=== PATIENT | male | born 1935 | race Caucasian/White ===

== ENCOUNTER 2019-10-31 14:53 | Outpatient (CLI) | payer MEDICARE, SELFPAY ==
[2019-10-31 15:07] LABS: Basophils Absolute Auto 0.01 K/mm3 (0.00-0.10); Basophils Percent Auto 0.2 % (0.0-1.0); Eosinophils Absolute Auto 0.05 K/mm3 (0.02-0.50); Hematocrit 29.5 % (37.0-46.0); Hemoglobin 9.7 g/dL (12.4-15.3); Immature Granulocyte Absolute 0.02 K/mm3 (0.00-0.00); Immature Granulocyte Percent A 0.4 % (0.0-0.0); Immature Platelet Fraction Pct 2.9 % (1.0-7.0); Lymphocytes Absolute Auto 0.64 K/mm3 (1.10-4.50); Lymphocytes Percent Auto 12.9 % (18.0-42.0); Mean Corpuscular HGB Conc 32.9 g/dL (32.0-36.0); Mean Platelet Volume 11.6 fl (8.7-11.0); Monocytes Absolute Auto 0.38 K/mm3 (0.10-0.90); Monocytes Percent Auto 7.7 % (2.0-11.0); Neutrophils Absolute Auto 3.9 K/mm3 (1.7-7.2); Neutrophils Percent Auto 77.8 % (50.0-70.0); Platelet Count Result 41 K/mm3 (150-420); Red Blood Count 3.47 M/mm3 (4.70-6.10); Red Cell Distribution Width 16.6 % (11.6-14.4)
[2019-10-31 15:17] LABS: Creatinine Urine 22.84 mg/dL (40-278); Total Protein Urine Random 51.7 mg/dL (0.0-11.9)
[2019-10-31 15:22] LABS: Hemoglobin A1C 7.7 % (<5.7)
[2019-10-31 16:09] LABS: Albumin Level 3.6 g/dL (3.4-5.0); Anion Gap 20.2 mmol/L (7-16); Blood Urea Nitrogen 40 mg/dL (7-18); Calcium 7.3 mg/dL (8.5-10.1); Carbon Dioxide 19 mmol/L (21-32); Chloride 106 mmol/L (98-108); Estimated Glomerular Filt Rate 14; Glucose 324 mg/dL (70-99); Osmolality Calculated 314 mOsm/kg (285-295); Phosphorus 5.2 mg/dL (2.6-4.7); Potassium 4.2 mmol/L (3.5-5.1); Sodium 141 mmol/L (136-145)
[2019-11-02 14:08] LABS: Parathyroid Intact 498 pg/mL (14-64)
[2019-11-02 18:59] LABS: Vitamin D 25 Hydroxy 11 ng/mL (30-100)
== END 2019-10-31 14:54 | disposition home or self-care (01) ==
LOC: CHSLAB 14:56
PROVIDERS: PCP Nurse Practitioner Family; Visit Provider Internal Medicine Nephrology
DX: N18.4 Chronic kidney disease, stage 4 (severe) (principal); E11.29 Type 2 diabetes mellitus with other diabetic kidney complication; I12.9 Hypertensive chronic kidney disease with stage 1 through stage 4 chronic kidney disease, or unspecified chronic kidney disease; R80.8 Other proteinuria
CPT/HCPCS: 36415; 80069; 82306; 82570; 83036; 83970; 84156; 85025; 85055

== ENCOUNTER 2020-03-02 09:47 | Observation (INO) | payer MEDICARE, SELFPAY ==
[2020-03-02] VITALS (8 sets, daily range): BP systolic 147–175; BP diastolic 63–86; PULSE 55–77; RESP 18–22; TEMP 36–37.2; O2SAT 99–100; BMI 17.9
--- NOTE | ~2020-03-02 | XR_ITS ---
XR thoracic spine 2V DATE: 03/03/2020 09:30 INDICATION: Mid back pain TECHNIQUE: AP, lateral, swimmer views COMPARISON: 03/2018 CT chest abdomen pelvis FINDINGS: There is moderately severe degenerative disease at C4-5, C5-6, C6-7. There is mild loss of height and biconcavity and increased density of T6, raising concern for osteob lastic metastasis secondary to prostate cancer or less likely Paget's disease. There is mild loss of height and anterior wedging of T12, There is mild loss of height and anterior wedging and patchy sclerosis of L1, likely due to metastati c disease. These findings are present on 03/30/2018. No interval fracture or bone destruction is detected. Status post sternotomy and coronary artery bypass surgery. 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
--- NOTE | ~2020-03-02 | XR_ITS ---
XR chest 2V DATE: 03/02/2020 11:53 INDICATION: Chest pain TECHNIQUE: PA and lateral views COMPARISON: 05/23/2019 PA and lateral chest FINDINGS: Status post sternotomy/coronary artery bypass graft surgery. Normal heart size. There is aortic calcification, ectasia and tortuosity. No hilar or mediastinal enl argement is evident. The lungs are hyperinflated. No pulmonary infiltrate or consolidation, pleural e ffusion or pulmonary vascular congestion or pneumothorax is detected. Diffuse osteopenia. IMPRESSION: Bilateral hyperinflation; no active pulmonary disease Status post sternotomy/coronary bypass graft surgery Aortic atherosclerosis Reviewed, dictated and finalized at location A.
--- NOTE | ~2020-03-02 | CT_ITS ---
EXAMINATION: CT cervical spine wo con DATE: 03/03/2020 09:28 INDICATION: Neck pain following fall TECHNIQUE: Computed tomography (CT) of the cervical spine was performed without intravenous contrast. Automated exposure control and iterative reconstruction technique were employed. Exam dose: 167.42 mGy-cm total exam DLP. COMPARISON: 02/11/2019 CT cervical spine FINDINGS: C1 and C2 are normally aligned and the odontoid process is intact. There is severe degenerative disc disease at C4-5 with mild retrolisthesis at this level. There is severe degenerative disc disease at C5-6 with minimal retrolisthesis at this level. There is severe degenerative disease at C6-7. No fracture or dislocation or locked facet or prevertebral soft tissue swelling. Incidental finding of mild thoracic aortic aneurysm. There is extensive thoracic aortic as well as gr eat vessel and bilateral cervical carotid arterial calcifications. IMPRESSION: Extensive degenerative changes; no fracture or dislocation is evident Reviewed, dictated and finalized at [facility]. Reviewed, dictated and finalized at location A. IMPRESSION: Extensive degenerative changes; no fracture or dislocation is evid ent
--- NOTE | ~2020-03-02 | XR_ITS ---
XR lumbar spine 2-3V DATE: 03/03/2020 09:29 INDICATION: Back pain, right hip pain following fall TECHNIQUE: AP, lateral, coned lateral lumbosacral views COMPARISON: None FINDINGS: Diffuse osteopenia. There is a transitional lumbosacral vertebra. There is prominent degenerative disc disease at 2 contiguous lower lumbar interspace levels above the transitional vertebra. With transitional lumbosacral vertebra as S1, there is mild loss of height, anterior wedging and patc hy sclerosis of L1, suggesting possible osseous chronic metastatic disease. Recommend clinical correl ation for possible prostate cancer. There is Paget's disease of the right tristian-pelvis. The pubic symphysis and sacroiliac joints are intact. There is severe calcification of the abdominal aorta and iliac and femoral arteries. 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
--- NOTE | ~2020-03-02 | XR_ITS ---
XR_CERV2-3V_CR DATE: 03/02/2020 15:00 INDICATION: Neck pain following fall TECHNIQUE: AP, lateral, open-mouth views COMPARISON: None FINDINGS: There is a reversal of cervical curvature. There is approximately 1.5 mm anterolisthesis at C3-4. Moderately severe degenerative disc disease and 1.5 mm retrolisthesis at C4-5 Moderately severe degenerative disc disease at C5-6. Moderate degenerative disc disease at C6-7. No fracture or dislocation or locked facet or prevertebral soft tissue swelling is detected. C1 and C 2 are normally aligned and the odontoid process appears intact. Status post sternotomy/CABG. Prominent thoracic aortic arch calcification. Left pleural calcification s are noted. Osteopenia. IMPRESSION: Reversal of cervical curvature 1.5 mm anterolisthesis at C4-5 Moderately severe degenerative disc disease at C4-5 and C5-6, with 1.5 mm retrolisthesis at C4-5 Osteopenia Reviewed, dictated and finalized at [facility]. Reviewed, dictated and finalized at location A. IMPRESSION: Reversal of cervical curvature 1.5 mm anterolisthesis at C4-5 Moderately severe degenerative disc disease at C4-5 and C5-6, with 1.5 mm retro listhesis at C4-5 Osteopenia
--- NOTE | 2020-03-02 10:00 | ECG_ITS ---
Measurements Intervals [place] Rate: 64 P: 74 KS: 173 QRS: 69 QRSD: 101 T: 67 QT: 438 QTc: 454 Interpretive Statements SINUS RHYTHM INFERIOR INFARCT, AGE INDETERMINATE BASELINE ARTIFACT- I, III, AVL, AVF ABNORMAL ECG Electronically Signed On 03-02-2020 20:12:37 CDT by Gio Valle D.O.
[2020-03-02 11:00] LABS: Basophils Absolute Auto 0.01 K/mm3 (0.00-0.10); Basophils Percent Auto 0.2 % (0.0-1.0); Eosinophils Absolute Auto 0.01 K/mm3 (0.02-0.50); Eosinophils Percent Auto 0.2 % (1.0-6.0); Hematocrit 27.8 % (37.0-46.0); Hemoglobin 9.2 g/dL (12.4-15.3); Immature Granulocyte Absolute 0.02 K/mm3 (0.00-0.00); Immature Granulocyte Percent A 0.3 % (0.0-0.0); Immature Platelet Fraction Pct 2.3 % (1.0-7.0); Lymphocytes Absolute Auto 0.32 K/mm3 (1.10-4.50); Lymphocytes Percent Auto 5.6 % (18.0-42.0); Mean Corpuscular HGB Conc 33.1 g/dL (32.0-36.0); Mean Corpuscular Hemoglobin 28.5 pg (27.0-31.0); Mean Corpuscular Volume 86.1 fL (78.0-102.0); Mean Platelet Volume 11.6 fl (8.7-11.0); Monocytes Absolute Auto 0.57 K/mm3 (0.10-0.90); Monocytes Percent Auto 9.9 % (2.0-11.0); Neutrophils Absolute Auto 4.8 K/mm3 (1.7-7.2); Neutrophils Percent Auto 83.8 % (50.0-70.0); Platelet Count Result 35 K/mm3 (150-420); Red Blood Count 3.23 M/mm3 (4.70-6.10); Red Cell Distribution Width 15.4 % (11.6-14.4); White Blood Count 5.7 K/mm3 (4.8-10.8)
[2020-03-02 11:11] LABS: Alanine Aminotransferase 28 U/L (16-63); Albumin Level 2.7 g/dL (3.4-5.0); Alkaline Phosphatase 605 U/L (46-116); Anion Gap 15.6 mmol/L (7-16); Aspartate Amino Transferase 25 U/L (15-37); Bilirubin,Total 0.5 mg/dL (0.00-1.00); Blood Urea Nitrogen 41 mg/dL (7-18); Carbon Dioxide 19 mmol/L (21-32); Chloride 107 mmol/L (98-108); Estimated CRCL calculation 8 ml/min; Estimated Glomerular Filt Rate 13; Glucose 133 mg/dL (70-99); Lipase 10 U/L (73-393); Osmolality Calculated 296 mOsm/kg (285-295); Potassium 4.6 mmol/L (3.5-5.1); Sodium 137 mmol/L (136-145); Total Protein 6.7 g/dL (6.4-8.2)
[2020-03-02 11:12] LABS: BNP 567 pg/mL (0-100)
[2020-03-02 11:13] LABS: Troponin I < 0.02 ng/mL (0.00-0.056)
--- NOTE | 2020-03-02 11:18 | ED.CHESTPAIN ---
HPI - Chest Pain General Chief Complaint: Chest Pain Stated Complaint: CHEST PAIN Source: patient Mode of arrival: ambulatory Limitations: no limitations History of Present Illness HPI narrative: this is an 84-year-old gentleman that presents from home to the emergency department with complaints of chest pain has had this chest pain for approximately 2 to 3 months has a history of CAD with CABG over 10 years ago, currently the patient denies any shortness of breath there is no fever or chills no abdominal pain no nausea vomiting no diarrhea constipation. The patient takes nitroglycerin had taken 1 earlier today currently his pain is relieved, an currently out of his nitroglycerin. Patient has a history of chronic renal insufficiency and history of pancreatic cancer. His blood pressure initially was 175/ 67, current blood pressure 150/80 patient appears comfortable with currently no chest discomfort. Related Data Home Medications Medication Instructions Recorded Confirmed amlodipine 5 mg tablet 5 mg PO BID 08/29/19 03/02/20 doxycycline monohydrate 100 mg 100 mg PO DAILY 08/29/19 03/02/20 capsule isosorbide mononitrate 30 mg 30 mg PO DAILY 08/29/19 03/02/20 tablet,extended release 24 hr tamsulosin 0.4 mg capsule 0.4 mg PO DAILY 08/29/19 11/21/19 clonidine 0.2 mg/24 hr weekly See Rx Instructions .ROUTE 11/08/19 03/02/20 transdermal patch .COMPLEX each nitroglycerin 0.4 mg sublingual 0.4 mg SUBLINGUAL ONCE tablet 11/08/19 03/02/20 tablet Allergies Allergy/AdvReac Type Severity Reaction Status Date / Time chlorthalidone Allergy Intermediate Unknown Verified 11/08/19 14:41 spironolactone Allergy Intermediate Unknown Verified 11/08/19 14:41 Daadquo-Oaj-Htb Reductase Allergy Cramping Verified 11/08/19 14:41 Inhibitor of the Muscles Review of Systems Review of Systems: All systems reviewed & are unremarkable except as noted in HPI and below PMFSH Past Medical History Medical History CAD (coronary artery disease) Cancer of pancreas Chronic liver disease Chronic renal insufficiency, stage IV (severe) Hip pain Hyperlipidemia associated with type 2 diabetes mellitus Hypertension associated with diabetes Nicotine dependence Pancytopenia Type 2 diabetes mellitus Surgical History Surgical History Acquired absence of other specified parts of digestive tract Whipple Procedure History of cataract surgery History of cholecystectomy History of pancreatectomy S/P CABG x 2 Family History Family History Mother Acute myocardial infarction Father Family history of coronary artery disease Other Hypertension Social History Social History Smoking status: Former smoker Substance use: never Additional occupation/education comments: [employer] Gender identity (if verbalized by the patient): Male Spiritual care concerns: No Exam Const: General: no acute distress and alert Orientation/consciousness: patient oriented x3 HENMT: Head: normal to inspection Eyes: Conjunctivae: conjunctivae normal Pupils: Equal, round and reactive pupils present Neck: Neck: normal visual inspection and no lymphadenopathy Chest: Chest palpation & inspection: normal inspection of the chest Resp: Effort & Inspection: normal respiratory effort Auscultation: clear to auscultation bilaterally Cardio: Rate: regular rate Rhythm: regular rhythm GI: Auscultation: normal bowel sounds : Male General Exam: Yes normal external exam Urinary Catheter: Urinary Catheter: patent and draining Back/Spine/Pelvis: Back: no CVA tenderness Skin: General skin exam: normal color Rashes: no rashes Neuro: General: patient oriented x3, moves all extremities, no meningeal signs and no focal motor def
--- NOTE | 2020-03-02 12:16 | PC.NURSE ---
Admitted for observation for chest pain, states pain relieved with oxygen adminsitration while in the ED, states out of nitroglycerine at home which he usually takes at home, states has been falling frequently at home, last time day before yesterday and now has been having more frequent chest pain and thinks this could be source of his pain, no ambulatory aids used at home, currently pain free, no sob noted, no diaphoresis noted, color pale, skin warm and dry, oriented to room and hospital procedures
[2020-03-02 12:36] LABS: Magnesium 1.7 mg/dL (1.8-2.4)
--- NOTE | 2020-03-02 12:40 | PC.NURSE ---
Sitting up in bed eating lunch, no chest pain, feeds self, no distress, states feels better with oxygen on
[2020-03-02] MEDS: SODIUM CHLORIDE 0.45% 1,000 ML 100 ML IV CONT ×2 (13:09→22:37)
--- NOTE | 2020-03-02 13:50 | PC.NURSE ---
Roseanna for reading brought in for patient, denies chest pain, no distress, call light in reach of patient
[2020-03-02] MEDS: MAGNESIUM SULF 2 GM/WATER 50ML 2 GM/50 ML BAG IVPB (14:00)
[2020-03-02] MEDS: LORATADINE 10 MG TABLET PO (14:00)
--- NOTE | 2020-03-02 14:00 | PM.IMHP ---
H&P: HPI History of Present Illness Chief complaint: CHEST PAIN Narrative: Papa Kennedy is a 84 year old male that presented to the ED with complaints of chest pain and wanted a refill on his nitro pills. Patient has a past medical history of CAD, cancer of the pancreatitis, chronic liver disease, stage IV chronic renal disease, hip pain, hyperlipidemia associated with type 2 diabetes, hypertension, pancytopenia, CABG,and CVA. according to the patient last week approximately Wednesday patient was putting up a flag pole in his yard and fell backwards he denies hitting his head or having any trauma he caught himself with his hand. He does complain of neck pain at this time. He noted that ever since he had that fall he has been having chest pains with numbness in his bilateral upper extremities and taking his nitroglycerin on a daily basis. He noted that he originally thought it was acid reflux he also noted that when he took the nitro his condition improved. He also have complaints of being fatigued. He noted he was so fatigued that he had to cut off his clothing. While in the ED a EKG was completed which is pending his chest x-ray indicated Bilateral hyperinflation; his troponin were negative x1 BNP 567. Patient will be admitted and placed on telemetry echo ordered and pending, we will hydrate patient due to worsening creatinine. patient is also currently on oxygen according to patient it improves his chest pain. He does deny any shortness of breath at this time. Patient denies any shortness of breath, palpitations, lightheadedness, dizziness, constipation, diarrhea, chills or fever at this time. patient will remain on observation for 24 hours. 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 on discharge Review of Systems Constitutional: Constitutional: Reports fatigue, Denies fever(s), Reports frequent falls, Denies headache(s) and Reports lethargy Cardiovascular: Cardiovascular: Reports chest pain and Reports other ( bilateral upper extremity numbness) Respiratory: Respiratory: Denies chest congestion, Denies cough, Denies pain with cough, Denies dyspnea and Denies wheezing Gastrointestinal: Gastrointestinal: Denies abdominal pain, Denies dysphagia, Denies excessive flatus, Reports heartburn, Denies diarrhea, Denies loose stools, Denies nausea, Denies vomiting and Denies hematemesis Genitourinary: Genitourinary: Reports as per HPI and Denies dysuria Musculoskeletal: Musculoskeletal: Reports neck pain ( post fall) and Reports numbness ( bilateral upper extremities) Integumentary/Breasts: Skin/Breast: Reports system reviewed and no additional complaints, except as docu Neurologic: Denies confusion, Denies vertigo, Denies dizziness, Denies syncope, Reports frequent falls, Reports lack of coordination and Denies loss of vision Psychiatric: Psychiatric: Reports no additional psychiatric complaints, Denies confusion, Denies depression and Denies hopelessness Endocrine: Endocrine: Reports no additional endocrine complaints Hematologic/Lymphatic: Hematologic/Lymphatic: Reports no additional hematologic/lymphatic complaints Allergic/Immunologic: Allergic/Immunologic: Reports no additional allergic/immunologic complaints PMFSH Past Medical History Medical History CAD (coronary artery disease) Cancer of pancreas Chronic liver disease Chronic renal insufficiency, stage IV (severe) Hip pain Hyperlipidemia associated with type 2 diabetes mellitus Hypertension associated with diabetes Nicotine dependence Pancytopenia Type 2 diabetes mellitus Surgical History Surgical History Acquired absence of other specified parts of digestive tract Whipple Procedure History of cataract surgery History of cholecystectomy History of pancreatectomy S/P CABG x 2
[2020-03-02 14:06] LABS: Troponin I 0.03 ng/mL (0.00-0.056)
--- NOTE | 2020-03-02 15:56 | PC.NURSE ---
Noted to have heart rate as low as 49 when asleep, no distress noted, call light in reach of patient
[2020-03-02 16:42] LABS: Glucose Point of Care 374 (65-105)
[2020-03-02] MEDS: AMLODIPINE BESYLATE 5 MG TABLET PO (16:58)
[2020-03-02 17:16] LABS: Troponin I 0.04 ng/mL (0.00-0.056)
[2020-03-02] MEDS: ACETAMINOPHEN 325 MG TABLET 650 MG PO (18:24)
[2020-03-02] MEDS: PANTOPRAZOLE 40 MG TABLET PO (20:21)
--- NOTE | 2020-03-02 20:22 | PC.NURSE ---
Patient denying pain at this time. He does report a strange feeling in his left knee down to his foot since he fell at home, He states that it is not pain but that it feels peculiar .
[2020-03-02 21:01] LABS: Add Urine Microscopic? YES; Appearance Urine Clear (Clear); Bilirubin Urine Negative (Negative); Blood Urine 1+ (Negative); Color Urine Yellow (Yellow); Glucose Urine UA Trace (Negative); Ketones Urine Negative (Negative); Leukocyte Esterase Ur Negative LEU/UL (Negative); Nitrate Urine Negative (Negative); Protein Urine 1+ (Negative); Urobilinogen Urine 0.2 mg/dL (0.2-1.0)
[2020-03-02 21:06] LABS: RBC Urine 0-2 /hpf (0-2); WBC Urine None seen /hpf (0-3)
[2020-03-02 21:07] LABS: Bacteria Urine None seen /hpf; Mucus Urine None seen /lpf; Squamous Epithelial Cell Urine None seen /hpf (Few)
[2020-03-02 22:46] LABS: Glucose Point of Care 130 (65-105)
[2020-03-03] VITALS: BP 149/60; PULSE 50; PULSE 51; RESP 20; TEMP 36.1; O2SAT 99
[2020-03-03 04:00] VITALS: BP 145/57; PULSE 46; RESP 20; TEMP 36.1; O2SAT 98
[2020-03-03 04:12] VITALS: PULSE 43
[2020-03-03 05:50] LABS: Hematocrit 25.9 % (37.0-46.0); Hemoglobin 8.5 g/dL (12.4-15.3); Immature Platelet Fraction Pct 2.6 % (1.0-7.0); Mean Corpuscular HGB Conc 32.8 g/dL (32.0-36.0); Mean Corpuscular Hemoglobin 28.2 pg (27.0-31.0); Mean Platelet Volume 12.2 fl (8.7-11.0); Platelet Count Result 32 K/mm3 (150-420); Red Blood Count 3.01 M/mm3 (4.70-6.10); Red Cell Distribution Width 15.4 % (11.6-14.4); White Blood Count 3.3 K/mm3 (4.8-10.8)
[2020-03-03 06:04] LABS: Lactic Acid 0.4 mmol/L (0.4-2.0)
[2020-03-03 06:06] LABS: BNP 1170 pg/mL (0-100)
[2020-03-03 06:14] LABS: Phosphorus 5.1 mg/dL (2.6-4.7)
[2020-03-03 06:15] LABS: Alanine Aminotransferase 27 U/L (16-63); Albumin Level 2.2 g/dL (3.4-5.0); Alkaline Phosphatase 502 U/L (46-116); Anion Gap 14.5 mmol/L (7-16); Aspartate Amino Transferase 22 U/L (15-37); Bilirubin,Total 0.3 mg/dL (0.00-1.00); Blood Urea Nitrogen 42 mg/dL (7-18); Carbon Dioxide 20 mmol/L (21-32); Chloride 108 mmol/L (98-108); Estimated CRCL calculation 9 ml/min; Estimated Glomerular Filt Rate 14; Glucose 96 mg/dL (70-99); Osmolality Calculated 296 mOsm/kg (285-295); Potassium 4.5 mmol/L (3.5-5.1); Sodium 138 mmol/L (136-145); Total Protein 5.3 g/dL (6.4-8.2)
--- NOTE | 2020-03-03 06:30 | PC.NURSE ---
Lab called to report critical creatinine level of 4.12.
[2020-03-03 06:34] VITALS: O2SAT 100
--- NOTE | 2020-03-03 06:44 | PC.NURSE ---
Dr. Hicks notified of pt's critical creatinine value and elevated BNP. Orders received and noted.
[2020-03-03 07:02] LABS: Band Neutrophils Percent 0 % (0-6); Lymphocytes Absolute Manual 0.89 K/mm3 (1.1-4.5); Lymphocytes Percent Manual 27 % (18-44); Monocytes Absolute Manual 0.29 K/mm3 (0.1-0.90); Monocytes Percent Manual 9 % (3-9); Neutrophils Absolute Manual 1.98 K/mm3 (1.3-6.7); Neutrophils Percent Manual 60 % (46-73); Total Cells Counted 100
[2020-03-03 07:03] LABS: Eosinophils Absolute Manual 0.13 K/mm3 (0.02-0.5); Eosinophils Percent Manual 4 % (1-6); Platelet Estimate Decreased (Adequate)
[2020-03-03] MEDS: FUROSEMIDE INJ 40 MG/4 ML VIAL IV PUSH (07:24)
[2020-03-03 07:42] VITALS: BP 130/55; PULSE 59; RESP 18; TEMP 36.3; O2SAT 95
[2020-03-03 07:56] LABS: Magnesium 2.2 mg/dL (1.8-2.4)
[2020-03-03 08:05] LABS: Troponin I 0.05 ng/mL (0.00-0.056)
[2020-03-03] MEDS: PANTOPRAZOLE 40 MG TABLET PO (09:25)
[2020-03-03] MEDS: AMLODIPINE BESYLATE 5 MG TABLET PO (09:25)
[2020-03-03] MEDS: LORATADINE 10 MG TABLET 5 MG PO (09:26)
--- NOTE | 2020-03-03 09:32 | PC.NURSE ---
Up in [place] walking, no chest pain, some pain in leg but thinks this is due from fall, just feeling tired
--- NOTE | 2020-03-03 10:21 | PM.IMPN ---
Subjective Date/time seen: 03/03/20 10:21 Objective Data Vital Signs Vital Signs: Vital Signs - 24 hr 03/02/20 10:25 03/02/20 10:41 03/02/20 11:49 Temperature 98 F Pulse Rate 77 62 62 Respiratory Rate 22 H 20 18 Blood Pressure 175/67 H 150/80 H 166/86 H Pulse Oximetry 100 100 100 03/02/20 12:05 03/02/20 12:15 03/02/20 15:15 Temperature 99 F Pulse Rate 67 67 58 L Respiratory Rate 18 18 Blood Pressure 152/74 H Pulse Oximetry 99 99 03/02/20 15:16 03/02/20 20:00 03/03/20 00:00 Temperature 97.7 F 96.8 F L 96.9 F L Pulse Rate 60 64 50 L Respiratory Rate 18 18 20 Blood Pressure 167/63 H 147/69 H 149/60 H Pulse Oximetry 99 99 99 03/03/20 04:00 03/03/20 04:12 03/03/20 06:34 Temperature 97.0 F L Pulse Rate 46 L 43 L Respiratory Rate 20 Blood Pressure 145/57 H Pulse Oximetry 98 100 03/03/20 07:42 Temperature 97.4 F L Pulse Rate 59 L Respiratory Rate 18 Blood Pressure 130/55 L Pulse Oximetry 95 Intake/Output Intake/Output: Intake & Output 02/29/20 03/01/20 03/02/20 03/03/20 23:59 23:59 23:59 23:59 Intake Total 6556.022 9965 Output Total 325 1200 Balance 1371.667 330 Meds/Results Medications: Active Medications Generic Name Dose Route Start Last Admin Trade Name Freq PRN Reason Stop Dose Admin Acetaminophen 650 mg 03/02/20 11:30 03/02/20 18:24 Tylenol Tablet PO 650 mg Q4H PRN Administration Mild Pain (1-3) or Fever Hydrocodone Bitart/Acetaminophen 1 tab 03/02/20 11:37 Richards 5-325 Mg PO Q6H PRN pain Al Hydrox/Mg Hydrox/Simethicone 30 ml 03/02/20 11:30 Mylanta PO QID PRN Dyspepsia Amlodipine Besylate 5 mg 03/02/20 17:00 03/03/20 09:25 Norvasc PO 5 mg BID SAMMY Administration Calcium Carbonate 200 mg 03/02/20 13:39 Tums PO Q6H PRN Indigestion Clonidine HCl 1 patch 03/06/20 09:00 Clonidine 0.2 Mg/24 Hr TRANSDERM WEEKLY [facility] Dextrose 12.5 gm 03/02/20 14:01 Dextrose 50% Syringe IV PUSH PRN PRN Hypoglycemia Protocol Diphenhydramine HCl 25 mg 03/02/20 13:34 03/02/20 22:37 Benadryl Cap PO 25 mg HS PRN Administration Insomnia Ergocalciferol 50,000 unit 03/05/20 09:00 Drisdol PO WEEKLY SAMMY Glucagon 1 mg 03/02/20 14:01 Glucagon For Inj IM PRN PRN Hypoglycemia Protocol Glucose 15 gm 03/02/20 14:01 Glutose 15 PO PRN PRN Hypoglycemia Protocol Dextrose 1,000 mls @ 100 mls/hr 03/02/20 14:01 Dextrose 5% 1,000 Ml IVPB PRN PRN Hypoglycemia Protocol Insulin Human Lispro 2 - 5 units 03/02/20 17:00 03/03/20 07:28 Humalog SUB-Q Not Given TIDWM [facility] Protocol Isosorbide Mononitrate 30 mg 03/03/20 12:00 Imdur PO DAILY SAMMY Loratadine 5 mg 03/03/20 09:00 03/03/20 09:26 Claritin PO 5 mg QAM [facility] Administration Nitroglycerin 0.4 mg 03/02/20 11:40 Nitrostat Subl 0.4 Mg (1/150) SUBLINGUAL ONCE PRN Chest Pain Olopatadine HCl 1 drop 03/02/20 17:00 03/03/20 09:27 Patanol 0.1% Ophth Soln EACH EYE Not Given BID [facility] Ondansetron HCl 4 mg 03/02/20 11:30 Zofran Inj IV PUSH Q6H PRN Nausea And Vomiting Pantoprazole Sodium 40 mg 03/02/20 21:00 03/03/20 09:25 Protonix PO 40 mg Q12HR SAMMY Administration Radiology Results: ITS Impressions Chest X-Ray 03/02/20 12:38 IMPRESSION: Bilateral hyperinflation; no active pulmonary disease Status post sternotomy/coronary bypass graft surgery Aortic atherosclerosis Cervical Spine X-Ray 03/02/20 15:05 IMPRESSION: Reversal of cervical curvature 1.5 mm anterolisthesis at C4-5 Moderately severe degenerative disc disease at C4-5 and C5-6, with 1.5 mm retrolisthesis at C4-5 Osteopenia Thoracic Spine X-Ray 03/03/20 09:36 IMPRESSION: 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
[2020-03-03 11:21] LABS: Glucose Point of Care 272 (65-105)
[2020-03-03 11:24] LABS: Prostate Specific Antigen 0.8 ng/mL (< OR = 4.0)
--- NOTE | 2020-03-03 11:44 | PM.DS ---
DS: Admitting Diagnosis Admitting Diagnosis Admitting Diagnosis: Chest pain, unspecified DS: Discharge Diagnosis Discharge Diagnosis (1) Chest pain: Qualifiers: Chest pain type: unspecified Qualified Code(s): R07.9 - Chest pain, unspecified Code(s): R07.9 - Chest pain, unspecified Status: Acute Assessment and Plan: troponin within normal limits x5. F/U with Dr. Hodge continue nitro EKG sr patient will follow-up with hearing instrument specialist on discharge (2) Acute renal failure: Qualifiers: Acute renal failure type: unspecified Qualified Code(s): N17.9 - Acute kidney failure, unspecified Code(s): N17.9 - Acute kidney failure, unspecified Status: Acute Assessment and Plan: chronic stage IV renal function with slight improvement. Patient is a dialysis candidate but refuse treatment creatinine today 4.12 baselines appears to be at 2.80-3.0 (3) Pancytopenia: Code(s): D61.818 - Other pancytopenia Status: Acute Assessment and Plan: chronic possibly secondary to chronic renal disease on 08/01/2019 platelets were 10/20/2043 20 platelets were 41 patient not actively bleeding (4) Vitamin D deficiency: Code(s): E55.9 - Vitamin D deficiency, unspecified Status: Acute Assessment and Plan: continue supplements (5) Cancer of pancreas: Code(s): C25.9 - Malignant neoplasm of pancreas, unspecified Status: Acute Assessment and Plan: patient currently in remission whipples procedure completed approximately 20 years ago (6) Irritation of left eye: Code(s): H57.89 - Other specified disorders of eye and adnexa Status: Acute Assessment and Plan: continue eyedrops (7) Type 2 diabetes mellitus: Code(s): E11.9 - Type 2 diabetes mellitus without complications Status: Acute Assessment and Plan: blood sugar 116, controlled (8) Chronic liver disease: Code(s): K76.9 - Liver disease, unspecified Status: Acute Assessment and Plan: stable liver enzymes within normal limits will continue to monitor (9) Chronic renal insufficiency, stage IV (severe): Code(s): N18.4 - Chronic kidney disease, stage 4 (severe) Status: Acute Assessment and Plan: according to patient he was going to start peritoneal dialysis but due to the scar tissue from his Whipple procedure he was unable to peritoneal dialysis. he then was supposed to have a fistula placed in his doctor was called for duty. patient after decided not to get any treatment for his chronic renal insufficiency. creatinine currently 4.19 baseline appears to be between 2.0 in 3.. will complete the fluid challenge (10) Hypertension: Code(s): I10 - Essential (primary) hypertension Status: Acute Assessment and Plan: blood pressure stable . continueisosorbide mononitrate and clonidine weekly (11) GERD (gastroesophageal reflux disease): Code(s): K21.9 - Gastro-esophageal reflux disease without esophagitis Status: Acute Assessment and Plan: continue home medication DS: Summary Hospital Course Hospital Course: Patient H&P from 03/02/20 Chief complaint: CHEST PAIN Narrative: Papa Kennedy is a 84 year old male that presented to the ED with complaints of chest pain and wanted a refill on his nitro pills. Patient has a past medical history of CAD, cancer of the pancreatitis, chronic liver disease, stage IV chronic renal disease, hip pain, hyperlipidemia associated with type 2 diabetes, hypertension, pancytopenia, CABG,and CVA. according to the patient last week approximately Wednesday patient was putting up a flag pole in his yard and fell backwards he denies hitting his head or having any trauma he caught himself with his hand. He does complain of neck pain at this time. He noted that ever since he had that fall he has be
--- NOTE | 2020-03-03 11:44 | P.DS_ITS ---
DS: Admitting Diagnosis Admitting Diagnosis Admitting Diagnosis: Chest pain, unspecified DS: Discharge Diagnosis Discharge Diagnosis (1) Chest pain: Qualifiers: Chest pain type: unspecified Qualified Code(s): R07.9 - Chest pain, unspecified Code(s): R07.9 - Chest pain, unspecified Status: Acute Assessment and Plan: * troponin within normal limits x5. F/U with Dr. Hodge * continue nitro * EKG sr * patient will follow-up with scleroscope tester on discharge (2) Acute renal failure: Qualifiers: Acute renal failure type: unspecified Qualified Code(s): N17.9 - Acute kidney failure, unspecified Code(s): N17.9 - Acute kidney failure, unspecified Status: Acute Assessment and Plan: * chronic stage IV * renal function with slight improvement. Patient is a dialysis candidate but refuse treatment * creatinine today 4.12 baselines appears to be at 2.80-3.0 * (3) Pancytopenia: Code(s): D61.818 - Other pancytopenia Status: Acute Assessment and Plan: * chronic possibly secondary to chronic renal disease * on 08/01/2019 platelets were 10/20/2043 20 platelets were 41 * patient not actively bleeding (4) Vitamin D deficiency: Code(s): E55.9 - Vitamin D deficiency, unspecified Status: Acute Assessment and Plan: * continue supplements (5) Cancer of pancreas: Code(s): C25.9 - Malignant neoplasm of pancreas, unspecified Status: Acute Assessment and Plan: * patient currently in remission whipples procedure completed approximately 20 years ago (6) Irritation of left eye: Code(s): H57.89 - Other specified disorders of eye and adnexa Status: Acute Assessment and Plan: * continue eyedrops (7) Type 2 diabetes mellitus: Code(s): E11.9 - Type 2 diabetes mellitus without complications Status: Acute Assessment and Plan: * blood sugar 116, controlled (8) Chronic liver disease: Code(s): K76.9 - Liver disease, unspecified Status: Acute Assessment and Plan: * stable * liver enzymes within normal limits * will continue to monitor (9) Chronic renal insufficiency, stage IV (severe): Code(s): N18.4 - Chronic kidney disease, stage 4 (severe) Status: Acute Assessment and Plan: * according to patient he was going to start peritoneal dialysis but due to the scar tissue from his Whipple procedure he was unable to peritoneal dialysis. he then was supposed to have a fistula placed in his doctor was called for duty. patient after decided not to get any treatment for his chronic renal insufficiency. * creatinine currently 4.19 baseline appears to be between 2.0 in 3.. will complete the fluid challenge (10) Hypertension: Code(s): I10 - Essential (primary) hypertension Status: Acute Assessment and Plan: * blood pressure stable * . continueisosorbide mononitrate and clonidine weekly * (11) GERD (gastroesophageal reflux disease): Code(s): K21.9 - Gastro-esophageal reflux disease without esophagitis Status: Acute Assessment and Plan: * continue home medication DS: Summary Hospital Course Hospital Course: Patient H&P from 03/02/20 Chief complaint: CHEST PAIN Narrative: Papa Kennedy is a 84 year old male that presented to the ED with complaints of chest pain and wanted a refill on his nitro pills. Patient has a past medical history of CAD, cancer of the pancre
[2020-03-03 12:00] VITALS: BP 165/71; PULSE 54; PULSE 55; RESP 18; TEMP 36.3; O2SAT 95
--- NOTE | 2020-03-03 13:10 | PC.NURSE ---
Discharged via wheel chair to home with discharge instructions, no questions voiced, picked patient up to take him home, no questions voiced per
[2020-03-03 13:13] LABS: Troponin I 0.05 ng/mL (0.00-0.056)
--- NOTE | 2020-03-03 19:52 | PM.EVENT ---
Event Note Event Note Event Note: Patient states that his chest pain is all but resolved. He complains of pain in his left upper back. It is worse with movement. Alert and oriented. Mucous membranes moist. Regular rate and rhythm. III/ TORI over the precordium. extremities warm dry and pink and distal pulses are full and symmetric. Scant edema. CT the C-spine and x-rays of T-spine were ordered to further evaluate the back pain given his recent fall. 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 Troponin remains stable and normal. home today. I have reviewed the chart and examined the patient. I discussed the case with Jeffery Patrick APN and agree with her assessment plan.
[2020-03-06 20:31] LABS: Carcinoembryonic Antigen 4.1 ng/mL (0.0-2.4)
== END 2020-03-03 13:10 | disposition home or self-care (01) ==
LOC: CHSED 11:29 → CHS2ND 11:47
PROVIDERS: Nurse Practitioner; Admitting Provider Emergency Medicine; Emergency Provider Emergency Medicine; PCP Nurse Practitioner Family; Visit Provider Emergency Medicine
DX: R07.9 Chest pain, unspecified (principal); N17.9 Acute kidney failure, unspecified; N18.4 Chronic kidney disease, stage 4 (severe); R93.7 Abnormal findings on diagnostic imaging of other parts of musculoskeletal system; E11.9 Type 2 diabetes mellitus without complications; I25.10 Atherosclerotic heart disease of native coronary artery without angina pectoris; E78.5 Hyperlipidemia, unspecified; K76.9 Liver disease, unspecified; D61.818 Other pancytopenia; I10 Essential (primary) hypertension; R53.83 Other fatigue; M54.2 Cervicalgia; E55.9 Vitamin D deficiency, unspecified; H57.89 Other specified disorders of eye and adnexa; K21.9 Gastro-esophageal reflux disease without esophagitis; M50.321 Other cervical disc degeneration at C4-C5 level; M50.322 Other cervical disc degeneration at C5-C6 level; Z85.07 Personal history of malignant neoplasm of pancreas; Z87.891 Personal history of nicotine dependence; Z95.1 Presence of aortocoronary bypass graft; Z91.81 History of falling
CPT/HCPCS: 36415; 71046; 72040; 72070; 72100; 72125; 80053; 81001; 82378; 83605; 83690; 83735; 83880; 84100; 84153; 84484; 85025; 85055; 87086; 87088; 93005; 96361; 96365; 96375; 99285; A9270; G0378; J1815; J1940; J3475

== ENCOUNTER 2020-03-06 10:00 | Outpatient (CLI) | payer MEDICARE, SELFPAY ==
--- NOTE | 2020-03-06 10:10 | ECHO_ITS ---
Patient Info Name: Papa Kennedy Age: 84 years : 1935 Gender: Male Ht: 65 in Wt: 112 lbs BSA: 1.52 m2 HR: 59 bpm BP: 170 / 63 mmHg Heart Rhythm: Sinus Rhythm Technical Quality: Good Exam Date: 03/06/2020 10:18 AM Exam Location: [facility] Patient Status: Outpatient Admit Date: 03/06/2020 Staff Ordering Physician: Kristina Patrick Timber Packer: Mariluz Chanel RDCS Attending Provider: Kristina Patrick Referring Physician: Darnell HOLLEY; Exam Type: CA echo doppler color flow Study Info Indications I11.9 - Hypertensive heart disease without heart failure Complete two-dimensional, color flow and Doppler transthoracic echocardiogram is performed. Strain analysis performed. History/Risk Factors Hypertension: Yes Dyslipidemia: Yes Congenital Heart Disease (CHD): No Myocardial Infarction (ND): No Chronic Lung Disease: No Obesity: No Renal Disease: Yes Coronary Artery Disease (CAD) Yes Congestive Heart Failure (CHF): No Cardiomyopathy/LV Systolic Dysfunction: No Diabetes Mellitus: Yes COPD: No Tobacco Use: Former Cerebrovascular Disease: CVA Family History: Coronary Artery Disease Deep Vein Thrombosis (DVT): None Dialysis: None Frailty Scale (CSHA): 3: Managing Well Cardiac Arrest: No Prior Interventions Pacemaker: No CABG: Yes ICD: No Heart Transplant: No Summary 1. Patient has prior CABG. 2. Left ventricular chamber dimension is normal. 3. Left ventricular systolic function is normal, estimated at 55-60%. 4. There is mildly increased left ventricular wall thickness. 5. The left ventricular diastolic function is grade I diastolic dysfunction. 6. E/e' in tissue doppler is not calculated. 7. Global longitudinal strain is normal at -18.0%. 8. Left atrial chamber dimension is mildly enlarged. 9. Right atrial chamber dimension is mildly enlarged. 10. Interatrial septal bounce is noted. 11. There is moderate aortic valve sclerosis. 12. There is trace aortic valve regurgitation. 13. There is mild aortic valve stenosis based on a mean gradient of 12 mmHg. 14. The mitral valve has mildly calcified annulus. 15. There is trace mitral valve regurgitation. 16. There is mild tricuspid valve regurgitation. 17. No pulmonary hypertension, estimated pulmonary arterial systolic pressure is 28 mmHg. 18. Small atheroma in anterior and posterior aortic root. Recommendations * Continue medical therapy for diabetes. Left Ventricle E/e' in tissue doppler is not calculated. Global longitudinal strain is normal at -18.0%. Left ventricular chamber dimension is normal. Left ventricular systolic function is normal, estimated at 55-60%. There is mildly increased left ventricular wall thickness. The left ventricular diastolic function is grade I diastolic dysfunction. Right Ventricle Right ventricular chamber dimension is normal. Right ventricular systolic function is normal. Left Atria Left atrial chamber dimension is mildly enlarged. Right Atria Right atrial chamber dimension is mildly enlarged. Atrial Septum Interatrial septal bounce is noted. Intact interatrial septum visualized by 2D and color flow imaging. Aortic Valve There is mild aortic valve stenosis based on a mean gradient of 12 mmHg. The aortic valve is trileaflet. There is moderate aortic valve sclerosis. There is trace aortic valve regurgitation. Pulmonic V
[2020-03-06 11:01] LABS: Albumin Level 2.9 g/dL (3.4-5.0); Anion Gap 18.2 mmol/L (7-16); Blood Urea Nitrogen 31 mg/dL (7-18); Calcium 7.3 mg/dL (8.5-10.1); Carbon Dioxide 20 mmol/L (21-32); Chloride 107 mmol/L (98-108); Estimated Glomerular Filt Rate 12; Glucose 211 mg/dL (70-99); Osmolality Calculated 304 mOsm/kg (285-295); Phosphorus 5.5 mg/dL (2.6-4.7); Potassium 4.2 mmol/L (3.5-5.1); Sodium 141 mmol/L (136-145)
[2020-03-06 12:58] LABS: Total Protein Urine Random 62.5 mg/dL (0.0-11.9)
[2020-03-09 10:36] LABS: Vitamin D 25 Hydroxy 44 ng/mL (30-100)
[2020-03-10 11:33] LABS: Parathyroid Intact 620 pg/mL (14-64)
== END 2020-03-06 10:01 | disposition home or self-care (01) ==
LOC: CHSIMG 10:04
PROVIDERS: PCP Nurse Practitioner Family; Visit Provider Nurse Practitioner
DX: N18.4 Chronic kidney disease, stage 4 (severe) (principal); D63.1 Anemia in chronic kidney disease; R80.8 Other proteinuria; I11.9 Hypertensive heart disease without heart failure
CPT/HCPCS: 36415; 80069; 82306; 82570; 83970; 84156; 93306

== ENCOUNTER 2020-04-12 13:41 | Inpatient (IN) | payer MEDICARE, SELFPAY ==
--- NOTE | ~2020-04-12 | XR_ITS ---
EXAMINATION: XR chest 1V portable DATE: 04/12/2020 15:45 INDICATION: Fever and chills. TECHNIQUE: A single frontal view of the chest was obtained. COMPARISON: Chest 2 views 03/02/2020, chest CT 03/30/2018 FINDINGS: There are calcified pleural plaques bilaterally, which may be seen with asbestosis exposure . No pneumonia, pleural effusion, or pneumothorax. The heart size is normal. There are coronary arter y calcifications. IMPRESSION: 1. No acute cardiopulmonary disease. Reviewed, dictated and finalized at location A.
[2020-04-12 13:50] VITALS: BP 166/79; PULSE 75; RESP 18; TEMP 38.2; O2SAT 100
[2020-04-12 14:05] VITALS: RESP 20; O2SAT 100
--- NOTE | 2020-04-12 14:34 | ED.FEVER ---
HPI - Fever General Chief Complaint: Fever Stated Complaint: just doesnt feel good Time Seen by Provider: 04/12/20 14:37 History of Present Illness HPI Narrative: 84-year-old male patient was brought in by his with complaints of feeling weak and having fever and chills. The patient states that for the last 2 days he has felt extremely weak and has had alternate fever and chills off and on. According to the the patient has had similar episodes in the past for years and they usually resolve on their own. She states that she is unable to handle in now because for most part he sits there and she is not able to help him. The patient denies any sore throat or cough. He denies any nausea or vomiting. Patient denies any chest pain or abdominal pain. He denies any headache. He denies any urinary symptoms. He is complaining of feeling very cold at this time. The patient and the stated that recently they have it at a local restaurant for their meals and apparently somebody had a positive COVID-19 tested. They do not recall any direct contact with anybody with the illness parent and they would like to be tested. Related Data Home Medications Medication Instructions Recorded Confirmed amlodipine 5 mg tablet 5 mg PO BID 08/29/19 04/12/20 clonidine 0.2 mg/24 hr weekly See Rx Instructions .ROUTE 11/08/19 04/12/20 transdermal patch .COMPLEX each isosorbide mononitrate 30 mg 60 mg PO BID tablet 03/06/20 04/12/20 tablet,extended release 24 hr furosemide 80 mg PO DAILY 04/12/20 04/12/20 Allergies Allergy/AdvReac Type Severity Reaction Status Date / Time chlorthalidone Allergy Intermediate Unknown Verified 04/12/20 14:20 spironolactone Allergy Intermediate Unknown Verified 04/12/20 14:20 Kegckwy-Hzu-Jnq Reductase Allergy Cramping Verified 04/12/20 14:20 Inhibitor of the Muscles Review of Systems Review of Systems: All systems reviewed & are unremarkable except as noted in HPI and below Constitutional: Constitutional: Reports as per HPI and Reports fatigue Eyes: Eyes: Reports no additional eye complaints ENT: Reports system reviewed and no additional complaints, except as documented, Denies dysphagia, Denies dizziness, Denies nasal congestion and Denies sore throat Cardiovascular: Cardiovascular: Reports no additional cardiovascular complaints Respiratory: Respiratory: Reports no additional respiratory complaints Gastrointestinal: Gastrointestinal: Reports no additional gastrointestinal complaints Genitourinary: Genitourinary: Reports no additional male genitourinary complaints Integumentary/Breasts: Skin/Breast: Reports system reviewed and no additional complaints, except as docu Psychiatric: Psychiatric: Reports no additional psychiatric complaints Endocrine: Endocrine: Reports no additional endocrine complaints Hematologic/Lymphatic: Hematologic/Lymphatic: Reports no additional hematologic/lymphatic complaints Allergic/Immunologic: Allergic/Immunologic: Reports no additional allergic/immunologic complaints PMFSH Past Medical History Medical History CAD (coronary artery disease) Cancer of pancreas Chronic liver disease Chronic renal insufficiency, stage IV (severe) Hip pain Hyperlipidemia associated with type 2 diabetes mellitus Hypertension Hypertension associated with diabetes Nicotine dependence Pancytopenia Type 2 diabetes mellitus Surgical History Surgical History Acquired absence of other specified parts of digestive tract Whipple Procedure History of cataract surgery History of cholecystectomy History of pancreatectomy S/P CABG x 2 Family History Family History Mother Acute myocardial infarction Father Family history of coronary artery disease Other Hypertension Social History Social History (Reviewed
--- NOTE | 2020-04-12 14:38 | ECG_ITS ---
Measurements Intervals [place] Rate: 84 P: 75 WI: 167 QRS: 79 QRSD: 95 T: 74 QT: 360 QTc: 426 Interpretive Statements SINUS RHYTHM VENTRICULAR PREMATURE COMPLEX NONSPECIFIC ST & T-WAVE ABNORMALITY- INF/LAT LEADS BASELINE ARTIFACT- I, II, III, AVR, AVL, AVF, V1-V6 BORDERLINE ECG Electronically Signed On 04-12-2020 16:56:48 CDT by Gio Valle D.O.
[2020-04-12] MEDS: ACETAMINOPHEN 325 MG TABLET 650 MG PO (15:00)
[2020-04-12 15:05] LABS: Add Urine Microscopic? YES; Appearance Urine Clear (Clear); Bilirubin Urine Negative (Negative); Blood Urine 1+ (Negative); Color Urine Yellow (Yellow); Glucose Urine UA 2+ (Negative); Ketones Urine Negative (Negative); Leukocyte Esterase Ur Negative LEU/UL (Negative); Nitrate Urine Negative (Negative); Protein Urine 1+ (Negative); Urobilinogen Urine 0.2 mg/dL (0.2-1.0)
[2020-04-12 15:14] LABS: WBC Urine 0-3 /hpf (0-3)
[2020-04-12 15:15] LABS: Bacteria Urine 2+ /hpf; Squamous Epithelial Cell Urine Rare /hpf (Few)
[2020-04-12 15:19] LABS: Basophils Absolute Auto 0.01 K/mm3 (0.00-0.10); Basophils Percent Auto 0.1 % (0.0-1.0); Hematocrit 31.9 % (37.0-46.0); Hemoglobin 10.4 g/dL (12.4-15.3); Immature Granulocyte Absolute 0.07 K/mm3 (0.00-0.00); Immature Granulocyte Percent A 0.7 % (0.0-0.0); Immature Platelet Fraction Pct 2.8 % (1.0-7.0); Lymphocytes Absolute Auto 0.51 K/mm3 (1.10-4.50); Lymphocytes Percent Auto 5.2 % (18.0-42.0); Mean Corpuscular HGB Conc 32.6 g/dL (32.0-36.0); Mean Corpuscular Hemoglobin 28.2 pg (27.0-31.0); Mean Corpuscular Volume 86.4 fL (78.0-102.0); Mean Platelet Volume 11.8 fl (8.7-11.0); Monocytes Absolute Auto 0.65 K/mm3 (0.10-0.90); Monocytes Percent Auto 6.6 % (2.0-11.0); Neutrophils Absolute Auto 8.6 K/mm3 (1.7-7.2); Neutrophils Percent Auto 87.4 % (50.0-70.0); Platelet Count Result 49 K/mm3 (150-420); Red Blood Count 3.69 M/mm3 (4.70-6.10); Red Cell Distribution Width 15.8 % (11.6-14.4); White Blood Count 9.8 K/mm3 (4.8-10.8)
[2020-04-12 15:31] LABS: INR 1.2; Prothrombin Time 12.7 Seconds (9.64-11.0)
[2020-04-12] MEDS: SODIUM CHLORIDE 0.9% IV 1,000 ML 500 ML IV CONT (15:32)
[2020-04-12 15:35] LABS: Lactic Acid Reflex 3.8 mmol/L (0.4-2.0)
[2020-04-12] MEDS: SODIUM CHLORIDE 0.9% IV 500 ML 999 ML IV CONT (15:36)
[2020-04-12 15:42] LABS: Alanine Aminotransferase 22 U/L (16-63); Albumin Level 3.1 g/dL (3.4-5.0); Alkaline Phosphatase 508 U/L (46-116); Anion Gap 19.9 mmol/L (7-16); Aspartate Amino Transferase 20 U/L (15-37); Bilirubin,Total 0.7 mg/dL (0.00-1.00); Blood Urea Nitrogen 36 mg/dL (7-18); CRP 5.8 mg/dL (0.0-0.9); Calcium 7.1 mg/dL (8.5-10.1); Carbon Dioxide 18 mmol/L (21-32); Chloride 104 mmol/L (98-108); Estimated CRCL calculation 9 ml/min; Estimated Glomerular Filt Rate 13; Glucose 270 mg/dL (70-99); Osmolality Calculated 302 mOsm/kg (285-295); Potassium 4.9 mmol/L (3.5-5.1); Sodium 137 mmol/L (136-145); Total Protein 7.5 g/dL (6.4-8.2)
[2020-04-12 16:00] VITALS: TEMP 36.9
[2020-04-12 16:59] VITALS: BP 153/87; PULSE 74; RESP 16
--- NOTE | 2020-04-12 17:00 | PC.NURSE ---
RN NOTIFIED DEV OF PT. TRANSFER FOR ADMISSION PER PT. REQUEST. PT. SPECIFICALLY REQUESTED TO BE TRANSFERRED TO [facility] INSTEAD OF BEING ADMITTED TO [facility]. PT. STABLE AT THIS TIME AND TRANSFER PAPERWORK WILL BE INITIATED. WILL CONTINUE TO MONITOR PT. VITALS LABS AND STATUS CHANGES.
--- NOTE | 2020-04-12 17:38 | PC.NURSE ---
SHIFT STACKER, ULCAS, AT [facility] CONTACTED AT THIS TIME FOR UPDATE ON TRANSFER. LUCAS STATES TO RN I AM WORKING ON IT. THE HOSPITALISTS HAVE HAD SEVERAL ADMISSIONS TODAY SO THEY ARE PROBABLY BUSY ERP NOTIFIED.
[2020-04-12] MEDS: MAG HYDROX/ALUMINUM HYD/SIMETH 30 ML, PHENobarb/HYOSCY/ATROPINE/SCOP 32.4 MG, LIDOCAINE... PO (17:53)
[2020-04-12 17:55] LABS: Troponin I < 0.02 ng/mL (0.00-0.056)
[2020-04-12 18:09] LABS: Reflex Lactic Acid Yes or No Add Lactic
[2020-04-12 18:46] LABS: Lactic Acid 2.6 mmol/L (0.4-2.0)
--- NOTE | 2020-04-12 18:49 | PC.NURSE ---
HOSPITALIST FROM [facility] SPOKE WITH HOSPITALIST AT [facility] AND WAS INFORMED THAT IF WE TRANSFERRED HIM TO [facility] IT WOULD BE VIEWED A LATERAL TRANSFER IT IS NOT TO A HIGHER LEVEL OF CARE . MD INFORMED PT. AND PT. SPOUSE OF THIS INFORMATION AND THAT INSURANCE MAY NOT COVER THE TRANSFER BY AMBULANCE. PT. VERBALIZED HE WOULD STAY HERE AT THE [facility] TO BE TREATED FOR SEPSIS AND THAN COULD STILL FOLLOW UP WITH HIS PROSTATE SPECIALIST AT [facility] AT A DIFFERENT TIME.
--- NOTE | 2020-04-12 19:17 | PC.NURSE ---
RN ANGELA GAVE REPORT TO HASMUKH GAO FROM THE 2ND FLOOR IN REGARDS TO PATIENT FOREIGN CONTRERAS. PT. VITALS ARE STABLE AT THIS TIME AND HE IS CURRENTLY AFEBRILE. PT. IS A MILD FALL RISK AND RN'S ARE AWARE AND PT. WILL BE A COVID R/O HE HAD A FEVER OF 100.8 UPON ARRIVAL TO ED, NO RESPIRATORY SYMPTOMS AND STATED HE AND HIS WENT TO [facility] [place] WHERE THERE WAS REPORT OF ONE STAFF MEMBER TESTING POSITIVE FOR COVID-19 AND SHE WORKED ON THE March. PT. AND SPOUSE WENT TO THE RESTAURANT ON THE March AND STATE THAT STAFF MEMBER WASN'T WORKING. PT. CONFUSION IMPROVED DRASTICALLY FROM ARRIVAL TO DECISION TO ADMIT TO THE FLOOR. PT. KIDNEY FUNCTION IS POOR AND HE WILL BE TREATED FOR POSSIBLE UTI.
--- NOTE | 2020-04-12 19:35 | ADMGEN ---
This patient, Papa Kennedy, was admitted to 2nd Floor Room 208-2. Patient/family oriented to hospital policies and general routines including ID bracelet, bed and alarms, visiting hours, pain management, procedures, bathroom and other care routines, personal items, smoking policy, room service/diet, and visiting hours. Valuables list has been completed. Information on how to activate the Rapid Response Team has been discussed. Patient/Family are encouraged to report perceived risks to care and to ask questions if they do not understand what they are told or what they should do.
--- NOTE | 2020-04-12 19:45 | PC.NURSE ---
AT 1950 PT. WAS TRANSPORTED VIA WHEELCHAIR WITH RN TO COVID UNIT ON THE 2ND FLOOR WHERE HASMUKH GAO WAS WAITING IN THE ROOM FOR THE PT. PT. VITALS STABLE AT THIS TIME AND RECIEVING HASMUKH GAO HAD NO QUESTIONS OR CONCERNS. PT. WILL BE ON ISOLATION UNTIL COVID RESULT COMES BACK NEGATIVE AND HASMUKH GAO CAN CALL DOWN TO ED FOR ANY INQUIRIES ABOUT PATIENT.
[2020-04-12 19:50] VITALS: BP 162/100; PULSE 70; RESP 18; TEMP 36.6; O2SAT 99
[2020-04-12 20:00] VITALS: BP 190/80; PULSE 68; RESP 20; TEMP 36.6; O2SAT 100; BMI 17.3
--- NOTE | 2020-04-12 20:25 | PC.NURSE ---
Patient admitted to room 208 from er at 1935. Vital signs were taken and assessment was preformed and charted. Patient is able to answer questions appropriately but he is very forgetful. Food Packer showed patient how to turn lights on and off with call light and just a few seconds later the patient was observed pressing multiple buttons on the call light and he had to be shown how to use it again. Patient also noted to be easily distracted, he would go from topic to topic while answering admission questions and had to be verbally redirected. Patient is stating that he has had multiple falls at home. His bed alarm is on for safety and patient was informed that, for his safety, he was not to be setting up without nurse assist. Patient states that he was admitted here about a month ago and that he was told to follow up for possible prostate cancer and bone cancer. Patient states that he has not followed up.
[2020-04-13] VITALS: BP 155/46; PULSE 51; RESP 20; TEMP 36.4; O2SAT 100
[2020-04-13 00:16] LABS: SARS-CoV-2 RNA PCR Negative
[2020-04-13 04:00] VITALS: BP 162/64; PULSE 50; RESP 20; TEMP 37.1; O2SAT 98
[2020-04-13 07:52] VITALS: BP 123/49; PULSE 56; RESP 18; TEMP 36.9; O2SAT 99
[2020-04-13 08:14] LABS: Hematocrit 25.2 % (37.0-46.0); Hemoglobin 8.4 g/dL (12.4-15.3); Mean Corpuscular HGB Conc 33.3 g/dL (32.0-36.0); Mean Corpuscular Hemoglobin 28.6 pg (27.0-31.0); Mean Corpuscular Volume 85.7 fL (78.0-102.0); Mean Platelet Volume 11.4 fl (8.7-11.0); Platelet Count Result 35 K/mm3 (150-420); Red Blood Count 2.94 M/mm3 (4.70-6.10); Red Cell Distribution Width 15.7 % (11.6-14.4); White Blood Count 5.3 K/mm3 (4.8-10.8)
[2020-04-13 08:18] LABS: Immature Platelet Fraction Pct 3.6 % (1.0-7.0)
[2020-04-13 08:19] LABS: Anion Gap 13.7 mmol/L (7-16); Blood Urea Nitrogen 37 mg/dL (7-18); CRP 10.5 mg/dL (0.0-0.9); Calcium 6.9 mg/dL (8.5-10.1); Carbon Dioxide 20 mmol/L (21-32); Chloride 110 mmol/L (98-108); Estimated CRCL calculation 9 ml/min; Estimated Glomerular Filt Rate 14; Glucose 114 mg/dL (70-99); Osmolality Calculated 297 mOsm/kg (285-295); Potassium 4.7 mmol/L (3.5-5.1); Sodium 139 mmol/L (136-145)
--- NOTE | 2020-04-13 08:24 | PM.IMHP ---
H&P: HPI History of Present Illness Chief complaint: UTI SEPSIS Narrative: Papa Kennedy is a 84 year old male that presented to the ED today with complaints chills and fevers. Patient has a past medical history of CAD, cancer of the pancreas, liver disease chronic kidney disease stage 4, pancytopenia chronic hip pain, diabetes, hyperlipidemia, hypertension and nicotine addiction. According to the patient for the last 2 days he has felt fatigued he noted yesterday he started developing chills and fever. According to the patient he had a fever of 101.0. patient stated that once his noticed he was not feeling well she immediately transported him to the ED at [facility]. This a.m. patient noted that he feels a lot better. He also noted that he would like to get his bone cancer and prostate workup completed. At the time I was unaware of what the patient was referring to. 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 I informed patient that I would fax my H&P to Ange DAIRY EQUIPMENT INSTALLER to inform her that patient would like a workup on his prostate and a referral to urologist and he would also like a consult to Oncology for his malignancy of the spine.He still does not want dialysis. while patient was in the ED his creatinine was at 4.36 lactic acid at 3.8 ,UA indicated bacteria ,red blood cells with glucose and protein COVID-19 negative, chest x-ray unremarkable, EKG sinus rhythm. patient's vital signs 123/79, 56, 98.4, 18, 99%. Patient able to tolerate all meals , slept well and ambulate at baseline. Patient denies SOB, CP, palpitation, extremity numbness, lightheadness, dizziness, constipation, diarrhea, chills or fever. Review of Systems Review of Systems: Narrative: CONSTITUTIONAL :No weight loss, fever, chills, weakness or fatigue.: Feels much better HEENT: Eyes: No diplopia or blurred vision. ENT: No earache, sore throat or runny nose. CARDIOVASCULAR: No pressure, squeezing, strangling, tightness, heaviness or aching about the chest, neck, axilla or epigastrium. RESPIRATORY: No cough, shortness of breath, PND or orthopnea. GASTROINTESTINAL: No nausea, vomiting or diarrhea. GENITOURINARY: No dysuria, frequency or urgency. MUSCULOSKELETAL: No muscle, back pain, joint pain or stiffness. SKIN: No change in skin, hair or nails. NEUROLOGIC: No paresthesias, fasciculations, seizures or weakness. PSYCHIATRIC: No disorder of thought or mood. ENDOCRINE: No heat or cold intolerance, polyuria or polydipsia. HEMATOLOGICAL: No easy bruising or bleeding. [facility] Past Medical History Medical History CAD (coronary artery disease) Cancer of pancreas Chronic liver disease Chronic renal insufficiency, stage IV (severe) Hip pain Hyperlipidemia associated with type 2 diabetes mellitus Hypertension Hypertension associated with diabetes Nicotine dependence Pancytopenia Type 2 diabetes mellitus Surgical History Surgical History Acquired absence of other specified parts of digestive tract Whipple Procedure History of cataract surgery History of cholecystectomy History of pancreatectomy S/P CABG x 2 Family History Family History Mother Acute myocardial infarction Father Family history of coronary artery disease Other Hypertension Social History Social History Smoking packs per day: 4 Smoking cigarettes per day: 80.0 Years smoked: 38 Smoking pack-years: 152.00 Smoking status: Former smoker Tobacco type: cigarettes Second hand tobacco smoke exposure: Yes Alcoho
[2020-04-13 08:34] LABS: BNP 1420 pg/mL (0-100)
[2020-04-13 08:49] LABS: Lactic Acid 0.8 mmol/L (0.4-2.0)
[2020-04-13] MEDS: SACCHAROMYCES BOULARDII 250 MG CAPSULE PO ×2 (09:10→16:43)
[2020-04-13] MEDS: SODIUM CHLORIDE 0.9% IV 1,000 ML 75 ML IV CONT (09:10)
[2020-04-13] MEDS: ISOSORBIDE MONONITRATE 30 MG TAB.ER.24H 60 MG PO ×2 (09:10→16:43)
[2020-04-13] MEDS: amLODIPine BESYLATE 5 MG TABLET PO ×2 (09:11→16:43)
[2020-04-13] MEDS: PANTOPRAZOLE SOD SESQUIHYDRATE 20 MG TAB PO (09:13)
[2020-04-13] MEDS: PHARMACIST COMMUNICATION ORDER 1 EACH XX (09:14)
--- NOTE | 2020-04-13 11:00 | PC.NURSE ---
Patient moved to 204, on standard isolation, denies needs, fluids infusing
[2020-04-13 11:44] LABS: Glucose Point of Care 312 (65-105)
--- NOTE | 2020-04-13 12:00 | PC.NURSE ---
Up to chair for lunch, denies needs, no pain, a/o x3, fluids infusing
--- NOTE | 2020-04-13 13:10 | PC.NURSE ---
Returned to bed, ambulates without assistance well, steady gait noted, fluids infusing, side rails up and call light in reach of pateint
[2020-04-13 14:53] VITALS: PULSE 52; RESP 18; O2SAT 97
[2020-04-13 15:13] VITALS: BP 154/64; PULSE 52; RESP 18; TEMP 36.7; O2SAT 96
--- NOTE | 2020-04-13 15:24 | PC.NURSE ---
Continuous pulse ox applied to patient, no distress, no change in breath sounds, no edema noted to legs at this time, keeping them elevated when in bed and in chair
[2020-04-13 16:50] LABS: Glucose Point of Care 140 (65-105)
--- NOTE | 2020-04-13 18:10 | PC.NURSE ---
assisted patient with shaving and getting ready for bed, denies needs, fluids infusing, continuous pulse ox in place, 99% RA
[2020-04-13] MEDS: MELATONIN 5 MG TABLET PO (20:32)
[2020-04-13 20:35] LABS: Glucose Point of Care 202 (65-105)
--- NOTE | 2020-04-13 22:18 | PC.NURSE ---
Patient's IV in RFA leaking/infiltrated. Access removed with catheter intact. Patient tolerated well. No new site initiated @ this time per patient's request. Call light in reach.
[2020-04-14] VITALS: BP 167/62; PULSE 54; RESP 20; TEMP 36.3; O2SAT 97
[2020-04-14] MEDS: SODIUM CHLORIDE 0.9% IV 1,000 ML 75 ML IV CONT (00:57)
[2020-04-14 05:46] LABS: Hematocrit 22.6 % (37.0-46.0); Hemoglobin 7.3 g/dL (12.4-15.3); Immature Platelet Fraction Pct 4.6 % (1.0-7.0); Mean Corpuscular HGB Conc 32.3 g/dL (32.0-36.0); Mean Corpuscular Hemoglobin 27.9 pg (27.0-31.0); Mean Corpuscular Volume 86.3 fL (78.0-102.0); Mean Platelet Volume 11.8 fl (8.7-11.0); Platelet Count Result 36 K/mm3 (150-420); Red Blood Count 2.62 M/mm3 (4.70-6.10); Red Cell Distribution Width 15.8 % (11.6-14.4); White Blood Count 4.6 K/mm3 (4.8-10.8)
[2020-04-14 05:58] LABS: BNP 690 pg/mL (0-100)
[2020-04-14 06:03] LABS: Lactic Acid 0.7 mmol/L (0.4-2.0)
[2020-04-14 06:12] LABS: Alanine Aminotransferase 13 U/L (16-63); Albumin Level 2.1 g/dL (3.4-5.0); Alkaline Phosphatase 278 U/L (46-116); Anion Gap 15.1 mmol/L (7-16); Aspartate Amino Transferase 15 U/L (15-37); Bilirubin,Total 0.3 mg/dL (0.00-1.00); Blood Urea Nitrogen 34 mg/dL (7-18); CRP 7.1 mg/dL (0.0-0.9); Calcium 6.8 mg/dL (8.5-10.1); Carbon Dioxide 17 mmol/L (21-32); Chloride 110 mmol/L (98-108); Estimated CRCL calculation 9 ml/min; Estimated Glomerular Filt Rate 14; Glucose 126 mg/dL (70-99); Osmolality Calculated 295 mOsm/kg (285-295); Potassium 4.1 mmol/L (3.5-5.1); Sodium 138 mmol/L (136-145)
--- NOTE | 2020-04-14 06:40 | PC.NURSE ---
Notified Dr. Singleton of pt's critical creatinine value. No new orders at this time.
[2020-04-14 07:26] LABS: Glucose Point of Care 126 (65-105)
[2020-04-14 07:41] VITALS: BP 128/49; PULSE 50; RESP 18; TEMP 36.4; O2SAT 95
[2020-04-14] MEDS: SACCHAROMYCES BOULARDII 250 MG CAPSULE PO (09:03)
[2020-04-14] MEDS: amLODIPine BESYLATE 5 MG TABLET PO (09:04)
[2020-04-14] MEDS: PANTOPRAZOLE SOD SESQUIHYDRATE 20 MG TAB PO (09:05)
[2020-04-14] MEDS: ISOSORBIDE MONONITRATE 30 MG TAB.ER.24H 60 MG PO (09:05)
--- NOTE | 2020-04-14 09:37 | P.DS_ITS ---
DS: Admitting Diagnosis Admitting Diagnosis Admitting Diagnosis: Urinary tract infection, site not specified <JACOBO Marin - Last Filed: 04/14/20 09:48> DS: Discharge Diagnosis Discharge Diagnosis (1) Urinary tract infection: Code(s): N39.0 - Urinary tract infection, site not specified <JACOBO Marin - Last Filed: 04/14/20 09:48> Status: Acute <JACOBO Marin - Last Filed: 04/14/20 09:48> Assessment and Plan: * UA indicates bacteria with red blood cells glucose and protein * UA culture preliminary no growth * patient will be discharged home with Cipro Q 24 hours renal dosed * wbc's within normal limits * patient afebrile * will continue to monitor <JACOBO Marin - Last Filed: 04/14/20 09:48> (2) Sepsis syndrome: Status: Acute <Kristina Patrick JACOBO - Last Filed: 04/14/20 09:48> Assessment and Plan: * secondary to UTI * refer to UTI <Kristina Patrick JACOBO - Last Filed: 04/14/20 09:48> (3) GERD (gastroesophageal reflux disease): Code(s): K21.9 - Gastro-esophageal reflux disease without esophagitis <Kristina Patrick JACOBO - Last Filed: 04/14/20 09:48> Status: Acute <Kristina Patrick JACOBO - Last Filed: 04/14/20 09:48> Assessment and Plan: * continue home medication <Kristina Patrick JACOBO - Last Filed: 04/14/20 09:48> (4) Hypertension: Code(s): I10 - Essential (primary) hypertension <Kristina Patrick JACOBO - Last Filed: 04/14/20 09:48> Status: Acute <Kristina Patrick JACOBO - Last Filed: 04/14/20 09:48> Assessment and Plan: * blood pressure stable * continue isosorbide mononitrate, Norvasc and clonidine weekly * will adjust medication as needed <Kristina Patrick ANNUAL CAMPAIGN MANAGER-C - Last Filed: 04/14/20 09:48> (5) Pancytopenia: Code(s): D61.818 - Other pancytopenia <Kristina PatrickTIA-C - Last Filed: 04/14/20 09:48> Status: Acute <Kristina Patrick ANNUAL CAMPAIGN MANAGER-C - Last Filed: 04/14/20 09:48> Assessment and Plan: * chronic possibly secondary to chronic renal disease * on 08/01/2019 platelets were 44, baseline 32-49, today36 * patient not actively bleeding <Kristina PatrickTIA-C - Last Filed: 04/14/20 09:48> (6) Type 2 diabetes mellitus: Code(s): E11.9 - Type 2 diabetes mellitus without complications <Kristina PatrickTIA-C - Last Filed: 04/14/20 09:48> Status: Acute <Kristina PatrickTIA-C - Last Filed: 04/14/20 09:48> Assessment and Plan: * glucose 111 controlled ? Continue insulin , accuchecks and sliding scale ? Will adjust medication as needed ? Continue diabetic diet ? Diabetic education <Kristina PatrickTIA-C - Last Filed: 04/14/20 09:48> (7) Hip pain: Qualifiers: Laterality: right Qualified Code(s): M25.551 - Pain in right hip <Kristina PatrickTIA-C - Last Filed: 04/14/20 09:48> Code(s): M25.559 - Pain in unspecified hip <Kristina PatrickTIA-C - Last Filed: 04/14/20 09:48> Status: Acute <Kristina PatrickTIA-C - Last Filed: 04/14/20 09:48> Assessment and Plan: * controlled * continue pain medication <Kristina PatrickTIA-C - Last Filed: 04/14/20 09:48> (8) Acute on chronic renal failure: Code(s): N17.9 - Acute kidney failure, unspecified; N18.9 - Chronic kidney disease, unspecified <Kristina RosarioTIA Valle-C - Last Filed: 04/14/20 09:48> Status: Acute <Kristina Patrick, TIA-C - Last Filed
--- NOTE | 2020-04-14 09:37 | PM.DS ---
DS: Admitting Diagnosis Admitting Diagnosis Admitting Diagnosis: Urinary tract infection, site not specified <Kristina Patrick CARLOS EDUARDOC - Last Filed: 04/14/20 09:48> DS: Discharge Diagnosis Discharge Diagnosis (1) Urinary tract infection: Code(s): N39.0 - Urinary tract infection, site not specified <Kristina Patrick CARLOS EDUARDOC - Last Filed: 04/14/20 09:48> Status: Acute <Kristina Patrick JACOBO - Last Filed: 04/14/20 09:48> Assessment and Plan: UA indicates bacteria with red blood cells glucose and protein UA culture preliminary no growth patient will be discharged home with Cipro Q 24 hours renal dosed wbc's within normal limits patient afebrile will continue to monitor <Kristina Patrick JACOBO - Last Filed: 04/14/20 09:48> (2) Sepsis syndrome: Status: Acute <Kristina Patrick JACOBO - Last Filed: 04/14/20 09:48> Assessment and Plan: secondary to UTI refer to UTI <Kristina RosarioKimani Darnell CARLOS EDUARDOC - Last Filed: 04/14/20 09:48> (3) GERD (gastroesophageal reflux disease): Code(s): K21.9 - Gastro-esophageal reflux disease without esophagitis <Kristina Patrick JACOBO - Last Filed: 04/14/20 09:48> Status: Acute <Kristina Patrick JACOBO - Last Filed: 04/14/20 09:48> Assessment and Plan: continue home medication <Kristina Patrick JACOBO - Last Filed: 04/14/20 09:48> (4) Hypertension: Code(s): I10 - Essential (primary) hypertension <Kristina RosarioKimani Darnell TIA-C - Last Filed: 04/14/20 09:48> Status: Acute <Kristina Patrick INTERNATIONAL AFFAIRS VICE PRESIDENTYvette - Last Filed: 04/14/20 09:48> Assessment and Plan: blood pressure stable continue isosorbide mononitrate, Norvasc and clonidine weekly will adjust medication as needed <Reubenchristin AbrahamKimani Patrick INTERNATIONAL AFFAIRS VICE PRESIDENT-Brittanie - Last Filed: 04/14/20 09:48> (5) Pancytopenia: Code(s): D61.818 - Other pancytopenia <Kristina PatrickTIA-C - Last Filed: 04/14/20 09:48> Status: Acute <Kristina PatrickTIA-C - Last Filed: 04/14/20 09:48> Assessment and Plan: chronic possibly secondary to chronic renal disease on 08/01/2019 platelets were 44, baseline 32-49, today36 patient not actively bleeding <Reubenchristin AbrahamKimani DarnellTIA-C - Last Filed: 04/14/20 09:48> (6) Type 2 diabetes mellitus: Code(s): E11.9 - Type 2 diabetes mellitus without complications <Kristina RosarioTIA Valle-C - Last Filed: 04/14/20 09:48> Status: Acute <Kristina PatrickTIA-C - Last Filed: 04/14/20 09:48> Assessment and Plan: glucose 111 controlled ? Continue insulin , accuchecks and sliding scale ? Will adjust medication as needed ? Continue diabetic diet ? Diabetic education <Kristina PatrickTIA-C - Last Filed: 04/14/20 09:48> (7) Hip pain: Qualifiers: Laterality: right Qualified Code(s): M25.551 - Pain in right hip <Kristina RosarioCARLOS EDUARDO ValleC - Last Filed: 04/14/20 09:48> Code(s): M25.559 - Pain in unspecified hip <Reubenchristin AbrahamTIA Valle-C - Last Filed: 04/14/20 09:48> Status: Acute <Kristina RosarioKimani DarnellTIA-C - Last Filed: 04/14/20 09:48> Assessment and Plan: controlled continue pain medication <Reubenchristin AbrahamTIA Valle-C - Last Filed: 04/14/20 09:48> (8) Acute on chronic renal failure: Code(s): N17.9 - Acute kidney failure, unspecified; N18.9 - Chronic kidney disease, unspecified <Reubenchristin AbrahamTIA Valle-C - Last Filed: 04/14/20 09:48> Status: Acute <Kristina AbrahamTIA Valle-C - Last Filed: 04/14/20 09:48> Assessment and Plan: chronic stage IV renal function with slight improvement. Patient is a dialysis candidate but refuse treatment creatinine today 4.12 according to photographic laboratory technician baseline is 4.[address] William patient will need to follow-up with him as outpatient after discharge <TIA Marin-Brittanie - Last Filed: 04/14/20 09:48
--- NOTE | 2020-04-14 10:45 | PC.NURSE ---
discharged home with personal items, denies needs, to follow up with Ange and schedule for oncology consult, no question regarding discharge instructions
--- NOTE | 2020-04-15 07:46 | P.PNCROSS_ITS ---
Event Note Event Note Event Note: For this 04-14-20 patient encounter, I reviewed the FINISHING INSPECTOR or PA documentation, treatment plan, and medical decision making; and I had [id number] time with this patient.
--- NOTE | 2020-04-15 07:46 | PM.EVENT ---
Event Note Event Note Event Note: For this 04-14-20 patient encounter, I reviewed the RUBBER STAMP DIE INSPECTOR or PA documentation, treatment plan, and medical decision making; and I had [id number] time with this patient.
[2020-04-19 22:33] LABS: Glucose Point of Care 118 (65-105)
--- NOTE | 2020-05-21 14:04 | PC.NURSE ---
IV normal Saline 0.9% 1000ml infusion started at 1443 and completed and stopped at 1600.
== END 2020-04-14 10:45 | disposition home or self-care (01) | DRG 872 ==
LOC: CHSED 18:49 → CHS2ND 18:59
PROVIDERS: Nurse Practitioner; Admitting Provider Emergency Medicine; Emergency Provider Emergency Medicine; PCP Nurse Practitioner Family; Visit Provider Emergency Medicine
DX: A41.51 Sepsis due to Escherichia coli [E. coli] (principal); N39.0 Urinary tract infection, site not specified; N17.9 Acute kidney failure, unspecified; N18.4 Chronic kidney disease, stage 4 (severe); D61.818 Other pancytopenia; I25.10 Atherosclerotic heart disease of native coronary artery without angina pectoris; K76.9 Liver disease, unspecified; I12.9 Hypertensive chronic kidney disease with stage 1 through stage 4 chronic kidney disease, or unspecified chronic kidney disease; Z20.828 Contact with and (suspected) exposure to other viral communicable diseases; E11.22 Type 2 diabetes mellitus with diabetic chronic kidney disease; E78.5 Hyperlipidemia, unspecified; E55.9 Vitamin D deficiency, unspecified; K21.9 Gastro-esophageal reflux disease without esophagitis; M25.551 Pain in right hip; Z85.07 Personal history of malignant neoplasm of pancreas; Z95.1 Presence of aortocoronary bypass graft; Z79.1 Long term (current) use of non-steroidal anti-inflammatories (NSAID); F17.200 Nicotine dependence, unspecified, uncomplicated; Z87.891 Personal history of nicotine dependence
CPT/HCPCS: 36415; 71045; 80048; 80053; 81001; 83036; 83605; 83880; 84484; 85025; 85027; 85055; 85610; 85730; 86140; 87040; 87077; 87186; 87635; 93005; 96361; 96365; 99283; 99285; A9270; C9803; J1815; J2543; J7030; J7040; U0003

== ENCOUNTER 2020-04-22 14:20 | Outpatient (CLI) | payer MEDICARE, SELFPAY ==
[2020-04-22 14:43] LABS: Basophils Percent Auto 0.3 % (0.2-1.2); Eosinophils Absolute Auto 0.1 K/mm3 (0-0.3); Eosinophils Percent Auto 1.5 % (0-4.4); Hematocrit 28.1 % (42.0-52.0); Hemoglobin 9.1 g/dL (14.0-18.0); Immature Granulocyte Absolute 0.01 K/mm3 (0.00-0.031); Immature Granulocyte Percent A 0.3 % (0-0.5); Lymphocytes Percent Auto 15.2 % (18.3-44.2); Mean Corpuscular HGB Conc 32.4 g/dl (32-36); Mean Corpuscular Hemoglobin 27.9 pg (26-34); Mean Corpuscular Volume 86.2 fl (80-100); Mean Platelet Volume 10.5 fl (7.4-10.4); Monocytes Absolute Auto 0.3 K/mm3 (0.1-0.6); Monocytes Percent Auto 8.4 % (2.6-8.5); Neutrophils Absolute Auto 2.9 K/mm3 (1.3-6.7); Neutrophils Percent Auto 74.3 % (45.5-73.1); Platelet Count Result 53 k/mm3 (150-375); Red Blood Count 3.26 M/mm3 (4.6-6.20); Red Cell Distribution Width 15.9 % (11.5-14.5)
[2020-04-22 16:32] LABS: Iron 72 ug/dL (49-181)
[2020-04-22 16:35] LABS: Alanine Aminotransferase 24 U/L (4-50); Albumin Level 3.5 g/dL (3.5-5.1); Alkaline Phosphatase 323 U/L (38-126); Anion Gap 12.7 mmol/L (7-16); Aspartate Amino Transferase 28 U/L (17-59); Bilirubin,Total 0.2 mg/dL (0.2-1.3); Blood Urea Nitrogen 27 mg/dL (9-20); Carbon Dioxide 19 mmol/L (22-30); Chloride 111 mmol/L (98-107); Estimated Glomerular Filt Rate 15; Glucose 144 mg/dL (75-110); Lactate Dehydrogenase 347 U/L (313-618); Potassium 4.7 mmol/L (3.4-5.0); Sodium 138 mmol/L (137-145)
[2020-04-22 16:42] LABS: Percent Iron Saturation 29 % (20-50)
[2020-04-22 17:06] LABS: Prostate Specific Antigen 0.9 ng/mL (< OR = 4.0)
[2020-04-28 22:49] LABS: Albumin 3.3 g/dL (3.8-4.8); Alpha 1 Globulin 0.4 g/dL (0.2-0.3); Alpha 2 Globulin 0.6 g/dL (0.5-0.9); Beta 1 Globulin 0.3 g/dL (0.4-0.6); Gamma Globulin 1.4 g/dL (0.8-1.7); Protein, Total 6.2 g/dL (6.1-8.1)
== END 2020-04-22 14:21 | disposition home or self-care (01) ==
PROVIDERS: PCP Nurse Practitioner Family; Visit Provider Internal Medicine Hematology & Oncology
DX: C79.51 Secondary malignant neoplasm of bone (principal); D64.9 Anemia, unspecified
CPT/HCPCS: 36415; 80053; 82607; 82728; 83540; 83550; 83615; 84153; 84155; 84165; 85025; 86334

== ENCOUNTER 2020-04-26 09:18 | Outpatient (CLI) | payer MEDICARE, SELFPAY ==
--- NOTE | ~2020-04-26 | NM_ITS ---
EXAMINATION: NM bone scan whole body DATE: 04/26/2020 12:48 INDICATION: Bone lesion. TECHNIQUE: 19.8 mCi Tc-99m HDP was administered intravenously. Delayed whole-body scintigrams were o btained. COMPARISON: CT abdomen and pelvis 04/26/2020, CT chest, abdomen, and pelvis 03/30/2018 FINDINGS: There is increased activity in T6, L1, and right innominate bone correlating with CT findin gs of Paget disease. There is increased activity in the sternum correlating with changes of sternotom y. IMPRESSION: 1. Polyostotic Paget disease. Reviewed, dictated and finalized at location A.
--- NOTE | ~2020-04-26 | CT_ITS ---
EXAMINATION: CT abdomen pelvis wo con DATE: 04/26/2020 09:56 INDICATION: Bone lesion. TECHNIQUE: Computed tomography (CT) of the abdomen and pelvis was performed without intravenous contr ast. Automated exposure control and iterative reconstruction technique were employed. The dose-length product was 191.20 mGy-cm. COMPARISON: CT abdomen and pelvis 03/30/2018, lumbar spine radiograph 03/03/2020 FINDINGS: The visualized portions of the lung bases demonstrate mild atelectasis. No pleural effusion . The heart size is normal. There are coronary artery calcifications. No pericardial effusion. There is mild intrahepatic biliary duct dilatation. 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 Pneumobilia is noted, likely secondary to the Whipple procedure. There is splenomegaly measuring 15.2 cm, stable fro m 03/30/2018. The adrenal glands are normal. There are cysts in the kidneys measuring up to 2.3 cm on t he right. There are widespread arterial calcifications. 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 The prostate is mildly enlarged. Stool distends the rectum. There is a large volume of st ool in the colon. There are no pathologically enlarged lymph nodes. There is no free intraperitoneal fluid. Right innominate bone demonstrates a mixed lytic and sclerotic pattern with trabecular thicken ing and cortical thickening, consistent with Paget disease. There is severe lumbar spondylosis. L1 ve rtebral body is enlarged with a chronic lytic and sclerotic pattern with thickened endplates and trab ecula, consistent with Paget disease. There is mild chronic height loss of T11-L1 vertebral bodies. IMPRESSION: 1. Polyostotic Paget disease, which correlates with the abnormality on prior spine radiographs. Reviewed, dictated and finalized at location A. IMPRESSION: 1. Polyostotic Paget disease, which correlates with the abnormality on prior sp ine radiographs.
== END 2020-04-26 09:19 | disposition home or self-care (01) ==
LOC: ANHIMG 09:24
PROVIDERS: PCP Nurse Practitioner Family; Visit Provider Internal Medicine Hematology & Oncology
DX: M89.9 Disorder of bone, unspecified (principal); M88.9 Osteitis deformans of unspecified bone
CPT/HCPCS: 74176; 78306; A9561

== ENCOUNTER 2020-07-10 09:53 | Outpatient (CLI) | payer MEDICARE, SELFPAY ==
[2020-07-10 13:04] LABS: Phosphorus 6.3 mg/dL (2.5-4.5)
== END 2020-07-10 09:54 | disposition home or self-care (01) ==
PROVIDERS: Referring Provider Internal Medicine Nephrology; Visit Provider Internal Medicine Hematology & Oncology
DX: I12.9 Hypertensive chronic kidney disease with stage 1 through stage 4 chronic kidney disease, or unspecified chronic kidney disease (principal); N18.5 Chronic kidney disease, stage 5; E11.29 Type 2 diabetes mellitus with other diabetic kidney complication
CPT/HCPCS: 36415; 84100

== ENCOUNTER 2020-09-04 09:45 | Outpatient (CLI) | payer MEDICARE, SELFPAY ==
[2020-09-04 12:32] LABS: Alanine Aminotransferase 13 U/L (4-50); Albumin Level 3.1 g/dL (3.5-5.1); Alkaline Phosphatase 257 U/L (38-126); Anion Gap 10 mmol/L (8-16); Aspartate Amino Transferase 20 U/L (17-59); Bilirubin,Total 0.4 mg/dL (0.2-1.3); Blood Urea Nitrogen 38 mg/dL (9-20); Calcium 7.1 mg/dL (8.4-10.2); Carbon Dioxide 17 mmol/L (22-30); Chloride 112 mmol/L (98-107); Estimated Glomerular Filt Rate 15; Glucose 109 mg/dL (75-110); Potassium 4.9 mmol/L (3.4-5.0); Sodium 139 mmol/L (137-145)
== END 2020-09-04 09:46 | disposition home or self-care (01) ==
LOC: ANHLAB 09:47
PROVIDERS: PCP Nurse Practitioner Family; Visit Provider Nurse Practitioner Family
DX: N18.4 Chronic kidney disease, stage 4 (severe) (principal); D63.1 Anemia in chronic kidney disease; R53.1 Weakness
CPT/HCPCS: 36415; 80053

== ENCOUNTER 2020-11-14 10:00 | Outpatient (CLI) | payer MEDICARE, SELFPAY ==
[2020-11-14 10:41] LABS: Creatinine Urine 35.41 mg/dL (40-278); Total Protein Urine Random 37.6 mg/dL (0.0-11.9); Ur Ttl Prot Creatinine Ratio 1.06 mg/mg (0-0.20)
[2020-11-14 10:57] LABS: Albumin Level 2.7 g/dL (3.4-5.0); Anion Gap 13 mmol/L (8-16); Blood Urea Nitrogen 37 mg/dL (7-18); Calcium 6.6 mg/dL (8.5-10.1); Carbon Dioxide 21 mmol/L (21-32); Chloride 108 mmol/L (98-108); Estimated Glomerular Filt Rate 13; Glucose 138 mg/dL (70-99); Osmolality Calculated 304 mOsm/kg (285-295); Phosphorus 5.8 mg/dL (2.6-4.7); Potassium 4.5 mmol/L (3.5-5.1); Sodium 142 mmol/L (136-145)
[2020-11-14 12:55] LABS: Hemoglobin A1C 6.4 % (<5.7)
== END 2020-11-14 10:01 | disposition home or self-care (01) ==
LOC: CHSLAB 10:04
PROVIDERS: PCP Nurse Practitioner Family; Visit Provider Internal Medicine Nephrology
DX: E55.9 Vitamin D deficiency, unspecified (principal); I12.9 Hypertensive chronic kidney disease with stage 1 through stage 4 chronic kidney disease, or unspecified chronic kidney disease; N18.5 Chronic kidney disease, stage 5; E11.29 Type 2 diabetes mellitus with other diabetic kidney complication
CPT/HCPCS: 36415; 80069; 82570; 83036; 84156

== ENCOUNTER 2020-11-22 12:54 | Observation (INO) | payer MEDICARE, SELFPAY ==
[2020-11-22] VITALS (15 sets, daily range): BP systolic 159–198; BP diastolic 66–81; PULSE 60–97; RESP 11–22; TEMP 36.6; O2SAT 97–100; BMI 17.8
--- NOTE | ~2020-11-22 | XR_ITS ---
EXAMINATION: XR chest 1V portable DATE: 11/22/2020 13:29 INDICATION: Chest pain TECHNIQUE: frontal view of the chest was obtained. COMPARISON: Chest radiograph dated 04/12/2020 FINDINGS: Again seen are calcified pleural plaques projecting over the bilateral mid lung zones. No new airspac e opacities, pulmonary edema, pleural effusion or pneumothorax. The cardiomediastinal silhouette is n ormal. Median sternotomy wires, ostial markers and mediastinal surgical clips consistent with prior c oronary artery bypass grafting. IMPRESSION: 1. 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 No acute cardiopulmonar y disease. Reviewed, dictated and finalized at location A. [facility] IMPRESSION: 1. 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 N o acute cardiopulmonary disease.
--- NOTE | 2020-11-22 12:57 | ECG_ITS ---
Measurements Intervals [place] Rate: 67 P: 67 IA: 160 QRS: 95 QRSD: 96 T: 137 QT: 424 QTc: 449 Interpretive Statements SINUS RHYTHM RIGHT AXIS DEVIATION MINIMAL Q WAVES- INFERIOR LEADS T WAVE ABNORMALITY IN HIGH LATERAL LEADS- CONSIDER ISCHEMIA BASELINE WANDER- V2-V6 ABNORMAL ECG Electronically Signed On 11-22-2020 13:51:06 VESSEL MANAGER by Gio Valle D.O.
[2020-11-22 13:49] LABS: Eosinophils Absolute Auto 0.02 K/mm3 (0.02-0.50); Eosinophils Percent Auto 0.5 % (1.0-6.0); Hematocrit 32.8 % (37.0-46.0); Hemoglobin 10.5 g/dL (12.4-15.3); Immature Granulocyte Absolute 0.01 K/mm3 (0.00-0.00); Immature Granulocyte Percent A 0.2 % (0.0-0.0); Immature Platelet Fraction Pct 1.9 % (1.0-7.0); Lymphocytes Absolute Auto 0.49 K/mm3 (1.10-4.50); Lymphocytes Percent Auto 11.2 % (18.0-42.0); Mean Corpuscular Hemoglobin 28.1 pg (27.0-31.0); Mean Corpuscular Volume 87.7 fL (78.0-102.0); Mean Platelet Volume 10.3 fl (8.7-11.0); Monocytes Absolute Auto 0.28 K/mm3 (0.10-0.90); Monocytes Percent Auto 6.4 % (2.0-11.0); Neutrophils Absolute Auto 3.6 K/mm3 (1.7-7.2); Neutrophils Percent Auto 81.7 % (50.0-70.0); Platelet Count Result 46 K/mm3 (150-420); Red Blood Count 3.74 M/mm3 (4.70-6.10); Red Cell Distribution Width 19.4 % (11.6-14.4); White Blood Count 4.4 K/mm3 (4.8-10.8)
[2020-11-22 14:02] LABS: BNP 1550 pg/mL (0-100)
--- NOTE | 2020-11-22 14:05 | ED.CHESTPAIN ---
HPI - Chest Pain General Source: patient and family Mode of arrival: ambulatory Limitations: no limitations History of Present Illness HPI narrative: Patient comes in with complaints of chest pain. This seems to happen mostly at rest, mostly in the evening, and often after a meal. He has had this ongoing for at least a month off and on. He has nitroglycerin at home that he takes for this which seems to help. Chest pain is not associated with radiation, goes across the chest to both sides, is not associated with nausea, diaphoresis or presyncope. It seems to be a fairly consistent pattern. Pertinent past history: coronary artery disease and CABG Onset (ago): day(s) Timing of current episode: episodic Prior episodes: Yes Onset: during rest Pain radiation: none Severity: moderate Quality: tightness Relieving factors: nitroglycerin Exacerbating factors: nothing Treatment prior to arrival: nitroglycerin Related Data Home Medications Medication Instructions Recorded Confirmed amlodipine 5 mg tablet 5 mg PO DAILY 08/29/19 11/22/20 isosorbide mononitrate 30 mg 60 mg PO DAILY tablet 03/06/20 11/22/20 tablet,extended release 24 hr furosemide 80 mg PO DAILY 04/12/20 11/22/20 clonidine 1 patch TRANSDERMAL WEEKLY 07/24/20 11/22/20 Allergies Allergy/AdvReac Type Severity Reaction Status Date / Time No Known Allergies Allergy Verified 11/14/20 14:50 Review of Systems Constitutional: Constitutional: Reports no additional constitutional complaints Eyes: Eyes: Reports no additional eye complaints ENT: Reports system reviewed and no additional complaints, except as documented Cardiovascular: Cardiovascular: Reports no additional cardiovascular complaints Respiratory: Respiratory: Reports no additional respiratory complaints Gastrointestinal: Gastrointestinal: Reports no additional gastrointestinal complaints Genitourinary: Genitourinary: Reports no additional male genitourinary complaints Musculoskeletal: Musculoskeletal: Reports no additional musculoskeletal complaints Integumentary/Breasts: Skin/Breast: Reports system reviewed and no additional complaints, except as docu Neurologic: Reports system reviewed and no additional complaints, except as documented Psychiatric: Psychiatric: Reports no additional psychiatric complaints Endocrine: Endocrine: Reports no additional endocrine complaints Hematologic/Lymphatic: Hematologic/Lymphatic: Reports no additional hematologic/lymphatic complaints Allergic/Immunologic: Allergic/Immunologic: Reports no additional allergic/immunologic complaints PMFSH Past Medical History Medical History Acute on chronic renal failure CAD (coronary artery disease) Cancer of pancreas Chronic liver disease Chronic renal insufficiency, stage IV (severe) Hip pain Hyperlipidemia associated with type 2 diabetes mellitus Hypertension Hypertension associated with diabetes Nicotine dependence Pancytopenia Type 2 diabetes mellitus Underweight Urinary tract infection Surgical History Surgical History Acquired absence of other specified parts of digestive tract Whipple Procedure History of cataract surgery History of cholecystectomy History of pancreatectomy S/P CABG x 2 Family History Family History Mother Acute myocardial infarction Father Family history of coronary artery disease Other Hypertension Social History Social History Smoking packs per day: 5 Smoking cigarettes per day: 100.0 Years smoked: 30 Smoking pack-years: 150.00 Smoking status: Former smoker Tobacco type: cigarettes Second hand tobacco smoke exposure: Yes Alcohol intake: never Drinks per week: 0 Substance use: never Substance use type: does not use Additional occupation/education co
[2020-11-22 14:10] LABS: Alanine Aminotransferase 20 U/L (16-63); Albumin Level 2.2 g/dL (3.4-5.0); Alkaline Phosphatase 281 U/L (46-116); Anion Gap 8 mmol/L (8-16); Aspartate Amino Transferase 20 U/L (15-37); Bilirubin,Total 0.4 mg/dL (0.00-1.00); Blood Urea Nitrogen 37 mg/dL (7-18); Calcium 6.8 mg/dL (8.5-10.1); Carbon Dioxide 20 mmol/L (21-32); Chloride 110 mmol/L (98-108); Estimated CRCL calculation 9 ml/min; Estimated Glomerular Filt Rate 14; Glucose 222 mg/dL (70-99); Osmolality Calculated 301 mOsm/kg (285-295); Potassium 5.2 mmol/L (3.5-5.1); Sodium 138 mmol/L (136-145); Total Protein 5.9 g/dL (6.4-8.2)
[2020-11-22 14:14] LABS: Lipase 13 U/L (73-393)
[2020-11-22] MEDS: METOPROLOL TARTRATE 50 MG TAB 25 MG PO (15:00)
[2020-11-22] MEDS: ASPIRIN 81 MG ENTERIC TABLET PO (15:01)
--- NOTE | 2020-11-22 15:22 | PC.NURSE ---
RN REQUESTED OBS ROOM FROM ROCIO NOE AT 1518. AWAITING CALL BACK.
[2020-11-22 15:25] LABS: SARS-CoV-2 Ag Negative (Negative)
--- NOTE | 2020-11-22 15:48 | PC.NURSE ---
1523 CALL BACK FROM CHARGE NURSE WHOM PROVIDED ROOM 203 FOR OBS STATUS. CHARGE NURSE STATES ED WILL NEED TO WAIT 30-60 MINUTES IN BETWEEN OBS PATIENTS. WILL CONTINUE TO MONITOR.
--- NOTE | 2020-11-22 16:25 | PC.NURSE ---
1400 PT REFUSED IV ACCESS. RN EDUCATED PT ON THE USE OF IV ACCESS IN CASE OF AN EMERGENCY AND IV MEDICATIONS. PT STILL REFUSING IV ACCESS. ERP MADE AWARE. ACCEPTING RNMANOHAR, MADE AWARE.
--- NOTE | 2020-11-22 16:26 | PC.NURSE ---
1415 PT ARRIVED TO ROOM 203. PT WALKING AROUND ROOM. RN EDUCATED PATIENT OF FALL PRECAUTIONS, USE OF CALL LIGHT, AND SAFETY MEASURES. PT REFUSING BED ALARM AT THIS TIME. RNS AT NURSES STATION MADE AWARE. PT REQUESTED THAT RN CALL THE [facility] FOR DINNER AND PREFERABLY A HOTDOG. RN CONTACTED [facility], [facility], RIGHT AWAY.
--- NOTE | 2020-11-22 16:41 | PC.NURSE ---
85 year old male to room as observation. telemetry with unstable angina. Pt stastes he received his 2nd covid vaccine today. Pt. states he has had chest pain for the past three months. He stated pain is not any worse & has remained the same for the past three months. Pt states has dull ache in joints & arms.
--- NOTE | 2020-11-22 17:30 | PC.NURSE ---
1730 Ate dinner. Telemetry continues Sinus adam mid 50's.
--- NOTE | 2020-11-22 19:15 | PC.NURSE ---
1830 Eating sm snack. states pt snacks frequently. Telemetry continues Pulse 59.
--- NOTE | 2020-11-22 19:17 | PC.NURSE ---
Telemetry continues pulse 58. Sinus adam.
[2020-11-23] VITALS: PULSE 58
--- NOTE | 2020-11-23 02:11 | PC.NURSE ---
Dr. Trevino notified of pt's leaving the hospital.
--- NOTE | 2020-11-23 02:13 | PC.NURSE ---
Attempted to contact pt's that pt was leaving but no answer on the phone.
--- NOTE | 2020-11-23 02:15 | PC.NURSE ---
[place] police department notified of pt leaving the hospital AMA without a ride home; They said they would be able to take him home.
--- NOTE | 2020-11-23 02:30 | PC.NURSE ---
Patient rang call light and informed staff that he was leaving because its too cold in this building. Patient is fully dressed with a sweater on and 5 blankets including a warmed blanket. Patient is insistent and agitated with staff attempts to reason with him, reminded of medical codition and possible dangers of leaving. Patient still states that he is leaving if he has to walk there, and he got on the elevator. Security was called and sat with patient while staff tried to contact his . did not answer and patient insists that we are holding him against his will. Staff tried to explain that we are trying to arrange transportation. He states that we better do it or he's walking out. Staff spoke with police and they arrived to give the patient a ride. Patient left per police car.
--- NOTE | 2020-11-25 11:11 | PM.SD2 ---
Same Day Admit/Disch: HPI History of Present Illness Chief complaint: chest pain Narrative: Patient was seen and evaluated 11/22/2020 at 22:00 Papa Kennedy is a 85 year old male who came in to the ER for chest pain, developing at rest, and happening mostly after he eats a meal in the evening. He has previously been treated for angina. Lately he has been taking his nitroglycerin pretty regular after his evening meal, because he usually has pain after his meal. His chest pain is not always associated with eating, but often occurs in the evening. Pain is moderately severe, across both arms, and lets up after nitroglycerin. [facility] Past Medical History Medical History Acute on chronic renal failure CAD (coronary artery disease) Cancer of pancreas Chronic liver disease Chronic renal insufficiency, stage IV (severe) Hip pain Hyperlipidemia associated with type 2 diabetes mellitus Hypertension Hypertension associated with diabetes Nicotine dependence Pancytopenia Type 2 diabetes mellitus Underweight Urinary tract infection Surgical History Surgical History Acquired absence of other specified parts of digestive tract Whipple Procedure History of cataract surgery History of cholecystectomy History of pancreatectomy S/P CABG x 2 Family History Family History Mother Acute myocardial infarction Father Family history of coronary artery disease Other Hypertension Social History Social History Smoking packs per day: 5 Smoking cigarettes per day: 100.0 Years smoked: 30 Smoking pack-years: 150.00 Smoking status: Former smoker Tobacco type: cigarettes Second hand tobacco smoke exposure: Yes Alcohol intake: never Drinks per week: 0 Substance use: never Substance use type: does not use Additional occupation/education comments: [employer] Gender identity (if verbalized by the patient): Male Spiritual care concerns: No ([employer]) Same Day Admit/Disch: Med Pre-admit Medications Home Medications Medication Instructions Recorded Confirmed Type amlodipine 5 mg tablet 5 mg PO DAILY 08/29/19 11/22/20 History nitroglycerin [Nitrostat] 0.4 mg SUBLINGUAL Q5-15M PRN #30 03/03/20 11/22/20 Rx tablet isosorbide mononitrate 30 mg 60 mg PO DAILY tablet 03/06/20 11/22/20 History tablet,extended release 24 hr furosemide 80 mg PO DAILY 04/12/20 11/22/20 History albuterol sulfate 90 mcg/actuation 1 puff INHALATION Q4H PRN #8 g 07/17/20 11/22/20 Rx aerosol inhaler clonidine 1 patch TRANSDERMAL WEEKLY 07/24/20 11/22/20 History ferrous sulfate 15 mg iron (75 1 ml PO DAILY #50 ml 09/02/20 11/22/20 Rx mg)/mL oral drops phenylephrine HCl 0.25 % rectal 1 supp NH BID PRN #24 ea 10/08/20 11/22/20 Rx suppository Exam Const: General: no acute distress HENMT: Ears: TM's normal bilaterally General nose exam: Normal nares present Mouth: Yes moist mucous membranes Eyes: General: appearance normal, both eyes and all related structures Sclera: sclerae normal Neck: Neck: supple Other: JVD to angle of jaw Resp: Effort & Inspection: normal respiratory effort Auscultation: clear to auscultation bilaterally Cardio: Rate: regular rate Rhythm: regular rhythm GI: GI Palp: Yes Soft to palpation (nontender) Skin: General skin exam: normal color Neuro: General: gait normal Speech: normal speech Motor exam (neuro): Normal motor muscle tone present throughout Extrem: General: normal to inspection Psych: Appearance: grossly normal Mental Status: mental status grossly normal DS: Summary Time Spent with Patient Time attestation: Total time spent providing and/or coordinating discharge services: less than 30 minutes DS: Admitting Diagnosis Admitting Diagnosis Admitting Diagnosis: unsta
--- NOTE | 2020-11-26 14:32 | PC.NURSE ---
Unable to contact for discharge call back.
== END 2020-11-23 02:47 | disposition left against medical advice (07) ==
LOC: CHSED 12:57 → CHS2ND 15:30
PROVIDERS: Admitting Provider Emergency Medicine; Emergency Provider Emergency Medicine; PCP Nurse Practitioner Family; Visit Provider Emergency Medicine
DX: I25.110 Atherosclerotic heart disease of native coronary artery with unstable angina pectoris (principal); C25.9 Malignant neoplasm of pancreas, unspecified; I12.9 Hypertensive chronic kidney disease with stage 1 through stage 4 chronic kidney disease, or unspecified chronic kidney disease; N17.9 Acute kidney failure, unspecified; N18.4 Chronic kidney disease, stage 4 (severe); E11.22 Type 2 diabetes mellitus with diabetic chronic kidney disease; D61.818 Other pancytopenia; E78.5 Hyperlipidemia, unspecified; K76.9 Liver disease, unspecified; Z95.1 Presence of aortocoronary bypass graft; Z20.822 Contact with and (suspected) exposure to COVID-19; Z90.49 Acquired absence of other specified parts of digestive tract; Z87.891 Personal history of nicotine dependence; Z53.29 Procedure and treatment not carried out because of patient's decision for other reasons
CPT/HCPCS: 36415; 71045; 80053; 83690; 83880; 84484; 85025; 85055; 87426; 93005; 99285; A9270; C9803; G0378

== ENCOUNTER 2021-03-12 08:55 | Outpatient (CLI) | payer MEDICARE, SELFPAY ==
[2021-03-12 10:32] LABS: Anion Gap 10 mmol/L (8-16); Blood Urea Nitrogen 38 mg/dL (9-20); Calcium 6.8 mg/dL (8.4-10.2); Carbon Dioxide 13 mmol/L (22-30); Chloride 116 mmol/L (98-107); Estimated Glomerular Filt Rate 16; Glucose 104 mg/dL (75-110); Phosphorus 5.9 mg/dL (2.5-4.5); Potassium 4.1 mmol/L (3.4-5.0); Sodium 139 mmol/L (137-145)
[2021-03-12 10:40] LABS: Creatinine Urine 77.6 mg/dL; Total Protein Urine Random 54 mg/dL
[2021-03-12 11:10] LABS: Parathyroid Intact 901.2 pg/mL (7.5-53.5)
[2021-03-12 11:19] LABS: Vitamin D 25 Hydroxy 23.9 ng/mL
== END 2021-03-12 08:56 | disposition home or self-care (01) ==
LOC: ANHLAB 09:04
PROVIDERS: Internal Medicine Nephrology; PCP Nurse Practitioner Family; Visit Provider Internal Medicine Hematology & Oncology
DX: I12.9 Hypertensive chronic kidney disease with stage 1 through stage 4 chronic kidney disease, or unspecified chronic kidney disease (principal); N18.5 Chronic kidney disease, stage 5; E11.29 Type 2 diabetes mellitus with other diabetic kidney complication
CPT/HCPCS: 36415; 80069; 82306; 82570; 83970; 84156

== ENCOUNTER 2021-04-07 12:13 | Observation (INO) | payer MEDICARE, SELFPAY ==
--- NOTE | ~2021-04-07 | CT_ITS ---
EXAMINATION: CT brain wo con DATE: 04/08/2021 13:41 INDICATION: Confusion. TECHNIQUE: Computed tomography (CT) of the head was performed without intravenous contrast. The mA wa s adjusted according to patient size. Iterative reconstruction technique was employed. The dose-lengt h product was 605.33 mGy-cm. COMPARISON: Head CT 03/23/2019 FINDINGS: There is no intracranial hemorrhage, acute infarction, or abnormal intracranial mass lesion . There are scattered areas of low attenuation in the cerebral white matter. The ventricles are linh l in size. There are likely changes of ocular lens replacement surgeries. There is mild mucosal thick ening in the paranasal sinuses. The mastoid air cells are normal. IMPRESSION: 1. Stable extensive nonspecific cerebral white matter disease, which likely represents chronic small vessel ischemic disease. Reviewed, dictated and finalized at location A. IMPRESSION: 1. Stable extensive nonspecific cerebral white matter disease, which likely rep resents chronic small vessel ischemic disease.
--- NOTE | ~2021-04-07 | XR_ITS ---
EXAMINATION: XR chest 2V DATE: 04/07/2021 12:54 INDICATION: Left chest pain. TECHNIQUE: Frontal and lateral views of the chest were obtained. COMPARISON: Chest single view 11/22/2020 FINDINGS: The chest demonstrates clear lungs without pneumonia, pleural effusion, or pneumothorax. Th e heart size is normal. Median sternotomy wires and mediastinal surgical clips are seen, likely from prior coronary artery bypass grafting. There is chronic height loss of L1. There is chronic anteropos terior enlargement and sclerosis of L1, consistent with Paget disease. IMPRESSION: 1. No acute cardiopulmonary disease. Reviewed, dictated and finalized at location A.
[2021-04-07 12:15] VITALS: BP 186/90; PULSE 67; RESP 17; TEMP 36.7; O2SAT 100
--- NOTE | 2021-04-07 12:21 | ECG_ITS ---
Measurements Intervals [place] Rate: 65 P: 65 DE: 171 QRS: 87 QRSD: 100 T: 95 QT: 431 QTc: 450 Interpretive Statements SINUS RHYTHM ANTEROSEPTAL INFARCT, AGE INDETERMINATE CONSIDER INFERIOR INFARCT, AGE INDETERMINATE BORDERLINE ST-T WAVE ABNORMALITY- LAT/HIGH LAT LEADS ABNORMAL ECG Electronically Signed On 04-07-2021 13:05:48 CDT by Gio Valle D.O.
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
[2021-04-07 12:50] LABS: Appearance Urine Clear (Clear); Bilirubin Urine Negative (Negative); Color Urine Light Yellow (Yellow); Glucose Urine UA Negative (Negative); Hematocrit 27.8 % (37.0-46.0); Immature Platelet Fraction Pct 2.4 % (1.0-7.0); Ketones Urine Negative (Negative); Leukocyte Esterase Ur Negative LEU/UL (Negative); Mean Corpuscular HGB Conc 32.4 g/dL (32.0-36.0); Mean Corpuscular Volume 89.7 fL (78.0-102.0); Mean Platelet Volume 10.3 fl (8.7-11.0); Nitrate Urine Negative (Negative); Platelet Count Result 39 K/mm3 (150-420); Protein Urine 1+ (Negative); Red Cell Distribution Width 18.3 % (11.6-14.4); Specific Grav Ur 1.015 (1.010-1.020); Urobilinogen Urine 0.2 mg/dL (0.2-1.0); White Blood Count 3.8 K/mm3 (4.8-10.8); pH Urine 5.5 (5.0-8.0)
[2021-04-07 12:56] LABS: Amphetamine Screen Urine Negative (Negative); Barbiturate Screen Urine Negative (Negative); Benzodiazepines Screen Urine Negative (Negative); Cannabinoid Screen Urine Negative (Negative); Cocaine Screen Urine Negative (Negative); Methadone Screen Urine Negative (Negative); Opiate Screen Urine Negative (Negative); Phencyclidine Screen Urine Negative (Negative)
[2021-04-07 13:01] LABS: INR 1.4; Prothrombin Time 14.5 Seconds (9.50-12.10)
[2021-04-07 13:11] LABS: Add Urine Microscopic? YES; Bacteria Urine None seen /hpf; Blood Urine Trace-Intact (Negative); Squamous Epithelial Cell Urine Rare /hpf (Few)
[2021-04-07 13:14] LABS: Alanine Aminotransferase 17 U/L (16-63); Albumin Level 2.3 g/dL (3.4-5.0); Alkaline Phosphatase 154 U/L (46-116); Anion Gap 15 mmol/L (8-16); Aspartate Amino Transferase 16 U/L (15-37); Bilirubin,Total 0.3 mg/dL (0.00-1.00); Blood Urea Nitrogen 40 mg/dL (7-18); Calcium 6.2 mg/dL (8.5-10.1); Carbon Dioxide 16 mmol/L (21-32); Chloride 111 mmol/L (98-108); Estimated Glomerular Filt Rate 16; Glucose 160 mg/dL (70-99); Osmolality Calculated 306 mOsm/kg (285-295); Potassium 4.5 mmol/L (3.5-5.1); Sodium 142 mmol/L (136-145); Total Protein 6.1 g/dL (6.4-8.2); Troponin I 15.4 ng/L (0.00-60.4)
[2021-04-07 13:15] LABS: Thyroid Stimulating Hormone 2.97 uIU/mL (0.36-3.74)
[2021-04-07 13:41] LABS: Total Cells Counted 100
[2021-04-07 13:42] LABS: Band Neutrophils Percent 0 % (0-6); Basophils Percent Manual 0 % (0-1); Eosinophils Percent Manual 0 % (1-6); Lymphocytes Absolute Manual 0.57 K/mm3 (1.1-4.5); Lymphocytes Percent Manual 15 % (18-44); Monocytes Percent Manual 8 % (3-9); Neutrophils Absolute Manual 2.92 K/mm3 (1.3-6.7); Neutrophils Percent Manual 77 % (46-73); Platelet Estimate Decreased (Adequate)
[2021-04-07 13:49] LABS: NT Pro B Type Natriuretic Pept > 35000 pg/mL (0-450)
--- NOTE | 2021-04-07 14:09 | PM.IMHP ---
H&P: HPI History of Present Illness Date/Time: 04/07/21 14:09 Pt being admitted under Observation for chest pain. Pt states his chest pain was on the left side of his chest, 10/10 pain, nothing made the pain worse, Nitro improved his pain, pain was sharp and without radiation. currently Pt does not have CP or SOB, He does not complain of any other issues at this time. <JILL Mccoy - Last Filed: 04/07/21 14:49> Chief Complaint: Chest Pain <JILL Mccoy - Last Filed: 04/07/21 14:49> Review of Systems Constitutional: Constitutional: Reports no additional constitutional complaints, Denies body ache(s), Denies chills, Denies fever(s) and Denies headache(s) <JILL Mccoy - Last Filed: 04/07/21 14:49> Cardiovascular: Cardiovascular: Reports no additional cardiovascular complaints, Denies chest pain and Denies chest pain at rest <JILL Mccoy - Last Filed: 04/07/21 14:49> Respiratory: Respiratory: Reports no additional respiratory complaints, Denies cough and Denies dyspnea on exertion <JILL Mccoy - Last Filed: 04/07/21 14:49> Gastrointestinal: Gastrointestinal: Reports no additional gastrointestinal complaints, Denies abdominal pain, Denies nausea and Denies vomiting <JILL Mccoy - Last Filed: 04/07/21 14:49> Genitourinary: Comments: Pt states he would not want to start dialysis as this is a one way street <JILL Mccoy - Last Filed: 04/07/21 14:49> Musculoskeletal: Musculoskeletal: Reports no additional musculoskeletal complaints <JILL Mccoy - Last Filed: 04/07/21 14:49> Neurologic: Reports system reviewed and no additional complaints, except as documented, Denies dizziness and Denies syncope <JILL Mccoy - Last Filed: 04/07/21 14:49> Psychiatric: Psychiatric: Reports no additional psychiatric complaints <JILL Mccoy - Last Filed: 04/07/21 14:49> [facility] Past Medical History Medical History: Medical History Acute on chronic renal failure CAD (coronary artery disease) Cancer of pancreas Chronic liver disease Chronic renal insufficiency, stage IV (severe) Hip pain Hyperlipidemia associated with type 2 diabetes mellitus Hypertension associated with diabetes Nicotine dependence Pancytopenia Type 2 diabetes mellitus Underweight Urinary tract infection <JILL Mccoy - Last Filed: 04/07/21 14:49> Surgical History Surgical History: Surgical History Acquired absence of other specified parts of digestive tract Whipple Procedure History of cataract surgery History of cholecystectomy History of pancreatectomy S/P CABG x 2 <JILL Mccoy - Last Filed: 04/07/21 14:49> Family History Family History: Family History Mother Acute myocardial infarction Father Family history of coronary artery disease Other Hypertension <JILL Mccoy - Last Filed: 04/07/21 14:49> Social History Social History: Social History Smoking packs per day: 5 Smoking cigarettes per day: 100.0 Years smoked: 25 Smoking pack-years: 125.00 Smoking status: Former smoker Tobacco type: cigarettes Second hand tobacco smoke exposure: Yes Alcohol intake: never Drinks per week: 0 Alcohol use details: denies Substance use: never Substance use type: does not use Additional occupation/education comments: [employer] Gender identity (if verbalized by the patient): Male Sexual Orientation (if Verbalized by the Patient): Straight or Heterosexual Spiritual care concerns: No <JILL Mccoy - Last Filed: 04/07/21 14:49> Meds Home Medications and Allergies Home medications: Home Medications Medication Instructions
[2021-04-07 14:10] VITALS: BP 167/73; PULSE 58; O2SAT 100
[2021-04-07 14:15] VITALS: BMI 16.0
--- NOTE | 2021-04-07 14:15 | ADMGEN ---
This patient, Papa Kennedy, was admitted to 2nd Floor Room 205-2 for chest pain and renal failure. Patient/family oriented to hospital policies and general routines including ID bracelet, bed and alarms, visiting hours, pain management, procedures, bathroom and other care routines, personal items, smoking policy, room service/diet, and visiting hours. Information on how to activate the Rapid Response Team has been discussed. Patient/Family are encouraged to report perceived risks to care and to ask questions if they do not understand what they are told or what they should do.
[2021-04-07 14:20] VITALS: BP 182/83; PULSE 62; PULSE 76; RESP 16; TEMP 36.3; O2SAT 100
--- NOTE | 2021-04-07 16:13 | PC.NURSE ---
Patients daughters Jackie and Olivia here to speak with patient about housing issues/changes.
[2021-04-07] MEDS: BUMETANIDE 1 MG TABLET 2 MG PO (17:30)
[2021-04-07 17:45] VITALS: BP 185/82; PULSE 72; RESP 18; TEMP 36.6; O2SAT 100
--- NOTE | 2021-04-07 17:45 | PC.NURSE ---
Addendum entered by Mayelin Seals RN 04/07/21 17:53: When pain was occurring patients rated it a 5/10. Original Note: at 1740 patient reported chest pain to midsternal area. States It was constant pain and then it floated to the left side of my chest, but now its gone. Vital signs obtained and remain stable. Patient currently denies any chest pain. Telemetry cont. to read SR. Patient resting in bed with hob elevated. Call light at side. Charge nurse notified.
--- NOTE | 2021-04-07 18:46 | PC.NURSE ---
Patient walking around the room. Stating he is going to leave and wants to go home because he is cold. Patient conts to states he wants to leave. Charge Nurse notified. This nurse will call Daughters and notify them of patient wanting to leave AMA.
[2021-04-07 18:59] LABS: Troponin I 14.6 ng/L (0.00-60.4)
--- NOTE | 2021-04-07 19:10 | PC.NURSE ---
This nurse spoke with patients daughters Olivia and Jackie. Both are aware of the situation. Stated that if he tries to leave call them and they will come and pick him up. Daughters requesting a capacity test on patient to verify if patient is capable of making own decisions for himself. This nurse notified Dr. Martinez of Daughters request.
--- NOTE | 2021-04-07 19:14 | PC.NURSE ---
Dr. Martinez notified, states He does not think patient has capacity to make own decisions. N.O received for Sil Souza.
--- NOTE | 2021-04-07 19:21 | PC.NURSE ---
Patient refuses to allow haldol injection. Remains fully clothed with jacket on. Warm blanket provided. Asked if daughter had been notified. Explained doctor and daughter would prefer him to stay all night until he is medically cleared. Stated as soon as he was able to contact a sheet metal layout worker he would be suing the hospital.
[2021-04-07 20:00] VITALS: BP 175/75; PULSE 62; PULSE 70; RESP 16; TEMP 36.4; O2SAT 99
[2021-04-07] MEDS: amLODIPine BESYLATE 5 MG TABLET PO (20:27)
[2021-04-07] MEDS: HALOPERIDOL 1 MG TABLET 5 MG (20:44)
--- NOTE | 2021-04-07 20:45 | PC.NURSE ---
Patient no longer requesting to leave. In bed with warm blankets provided. No s/s of chest pain. Provided warm drink and snack. Told patient I would be here all night and he responded that he would be here all nioght too.
[2021-04-07] MEDS: HALOPERIDOL 1 MG TABLET 5 MG PO (21:00)
--- NOTE | 2021-04-07 22:25 | PC.NURSE ---
Patient requested warm blanket and another snack. Provided. Pain rated at a 0 on 0 to 10 scale. No s/s of pain or discomfort
[2021-04-08] VITALS: BP 170/75; PULSE 64; PULSE 72; RESP 16; TEMP 36.8; O2SAT 99
--- NOTE | 2021-04-08 00:17 | PC.NURSE ---
Lab here for draw. Patient refused. requested medication to help him sleep. Doctor notified and new order received for ZACHARIAH leon
[2021-04-08] MEDS: diphenhydrAMINE HCl CAP 25 MG CAPSULE PO (01:00)
--- NOTE | 2021-04-08 02:15 | PC.NURSE ---
Assisted patient to bed and positioned for comfort. N0 s/s of pain or discomfort. Complaint of hands and feet being cold.
--- NOTE | 2021-04-08 03:33 | PC.NURSE ---
Patient still awake. requested another snack. assisted to toilet and positioned in bed for comfort.
[2021-04-08 04:00] VITALS: PULSE 69
--- NOTE | 2021-04-08 04:22 | PC.NURSE ---
Patient resting. no s/s of pain or discomfort
--- NOTE | 2021-04-08 05:16 | PC.NURSE ---
Patient refused blood draw.no S/S of chest pain or discomfort
--- NOTE | 2021-04-08 05:43 | PC.NURSE ---
Patient requested snack and hot coffee. Also asked when doctor would come in so he could be discharged. Alert and oriented at this time. No s/s of weakness or chest pain
[2021-04-08 07:48] VITALS: BP 129/55; PULSE 66; RESP 18; TEMP 36; O2SAT 100
--- NOTE | 2021-04-08 08:05 | PC.NURSE ---
pt sitting up in bed with coat on and multiple blankets, pt denies any chest pains, a&ox3, belongings within reach.
[2021-04-08] MEDS: calcitrioL 0.25 MCG CAPSULE PO (09:04)
[2021-04-08] MEDS: amLODIPine BESYLATE 5 MG TABLET 10 MG PO (09:04)
[2021-04-08] MEDS: ISOSORBIDE MONONITRATE 30 MG TAB.ER.24H 75 MG PO (09:06)
[2021-04-08] MEDS: BUMETANIDE 1 MG TABLET 2 MG PO ×2 (09:06→17:43)
--- NOTE | 2021-04-08 09:34 | PC.NURSE ---
pt sitting in chair looking out window, denies chest pain, pt ambulating in room with his cane, denies any other needs at this time
--- NOTE | 2021-04-08 10:50 | PC.NURSE ---
pt sitting up in bed, denies chest pain, reports getting hungry and asked when lunch is, denies any other needs at this time.
--- NOTE | 2021-04-08 12:02 | ECG_ITS ---
Measurements Intervals [place] Rate: 88 P: 78 MT: 166 QRS: 88 QRSD: 96 T: -90 QT: 385 QTc: 467 Interpretive Statements SINUS RHYTHM INCOMPLETE RIGHT BUNDLE BRANCH BLOCK BORDERLINE R WAVE PROGRESSION, ANTERIOR LEADS MINIMAL Q WAVES- INFERIOR LEADS ST-T WAVE ABNORMALITY IN INF/LAT LEADS- CONSIDER ISCHEMIA BASELINE ARTIFACT- I, II, III, AVF, V1-V4 ABNORMAL ECG Electronically Signed On 04-08-2021 14:24:00 CDT by Gio Valle D.O.
[2021-04-08 12:05] VITALS: BP 145/74; PULSE 87; RESP 18; TEMP 36; O2SAT 99
[2021-04-08] MEDS: NITROGLYCERIN SL 0.4 MG TABLET SUBLINGUAL (12:05)
--- NOTE | 2021-04-08 12:09 | PC.NURSE ---
PT evaluated pt, pt c/o chest pain, 1 nitro given and pain resolved in 2 minutes
--- NOTE | 2021-04-08 12:16 | PC.NURSE ---
Cardiopulmonary at bedside to perform EKG
--- NOTE | 2021-04-08 12:46 | PCPTNOTE ---
No Care Plan initiated due to patient being discharged today.
--- NOTE | 2021-04-08 13:34 | PC.NURSE ---
pt taken to xray for head CT via wheelchair by instrument room technician
--- NOTE | 2021-04-08 13:44 | PC.NURSE ---
pt returned to room
--- NOTE | 2021-04-08 14:10 | PC.NURSE ---
Dept of aging from [facility] here to speak with patient
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
--- NOTE | 2021-04-08 15:30 | PC.NURSE ---
pt sitting in chair by window, states I am not going to stay, someone needs to call my daughter pt informed of benefits and risks of staying here to receive further care. Pt states he will not have any more labs or procedures done and wants to leave.
--- NOTE | 2021-04-08 15:30 | PC.NURSE ---
Patient's daughter called and told of pt wanting to leave the hospital, daughter stated that she will come and get him after they have made sure his home is safe for him to return home. Pt aware that daughter will come and get him and stated he will wait for her.
[2021-04-08 16:00] VITALS: BP 146/48; PULSE 71; PULSE 73; RESP 16; TEMP 36.6; O2SAT 100
--- NOTE | 2021-04-08 16:50 | PC.NURSE ---
pt asking where his daughter is, explained to pt that she will be here when she is finished with her other things, pt okay with that and said he will eat dinner.
--- NOTE | 2021-04-08 18:15 | PC.NURSE ---
Dr Harirson notified of patient's wishes to leave AMA, no new orders given
--- NOTE | 2021-04-08 18:25 | PC.NURSE ---
pt given AMA form and again asked if he would consider staying, pt educated on risks and benefits of staying, verbalized understanding and reported he could many ways, and refused to stay any longer. pt given written discharge instructions with information to call his quality assurance manager. daughter here to transport pt home, pt taken down via wheelchair to daughters car
--- NOTE | 2021-04-08 18:43 | PC.NURSE ---
Jackie diaz RN placed call to [facility] to advise Richa of patients decision to leave AMA
--- NOTE | 2021-04-10 12:20 | PC.NURSE ---
Pt states he received and understood his discharge instructions. Has no other comments.
== END 2021-04-08 18:25 | disposition left against medical advice (07) ==
LOC: CHSED 13:54 → CHS2ND 14:07
PROVIDERS: Nurse Practitioner Family; Admitting Provider Emergency Medicine; Emergency Provider Emergency Medicine; PCP Nurse Practitioner Family; Visit Provider Emergency Medicine
DX: I25.119 Atherosclerotic heart disease of native coronary artery with unspecified angina pectoris (principal); I12.9 Hypertensive chronic kidney disease with stage 1 through stage 4 chronic kidney disease, or unspecified chronic kidney disease; N18.4 Chronic kidney disease, stage 4 (severe); E11.22 Type 2 diabetes mellitus with diabetic chronic kidney disease; E78.5 Hyperlipidemia, unspecified; E83.51 Hypocalcemia; D69.6 Thrombocytopenia, unspecified; R94.31 Abnormal electrocardiogram [ECG] [EKG]; Z90.410 Acquired total absence of pancreas; Z90.49 Acquired absence of other specified parts of digestive tract; Z79.899 Other long term (current) drug therapy; Z95.1 Presence of aortocoronary bypass graft; Z87.891 Personal history of nicotine dependence; Z53.29 Procedure and treatment not carried out because of patient's decision for other reasons; Z85.07 Personal history of malignant neoplasm of pancreas
CPT/HCPCS: 36415; 70450; 71046; 80053; 80307; 81001; 83880; 84443; 84484; 85025; 85055; 85610; 93005; 97161; 97165; 99285; A9270; G0378

== ENCOUNTER 2021-04-09 23:45 | Observation (INO) | payer MEDICARE, SELFPAY ==
--- NOTE | ~2021-04-09 | XR_ITS ---
XR hip BI 2V w AP pelvis DATE: 04/10/2021 00:54 INDICATION: Fall. Pain and swelling of hips. TECHNIQUE: AP pelvis. AP, lateral and crosstable lateral views of each hip. COMPARISON: 09/18/2019 right hip 07/01/2018 right hip FINDINGS: Paget's disease of the right hemipelvis. Diffuse osteopenia. No pelvic fracture or bone destruction is evident. The pubic symphysis and sacroiliac joints are inta ct. No fracture or dislocation, avascular necrosis or bone destruction of either hip is detected. Severe degenerative disc disease at L4-5. Degenerative disease at L5-S1. Mild fusiform distal abdominal aortic aneurysm. There is extensive calcification of the abdominal aor ta, iliac and femoral arteries. 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
--- NOTE | ~2021-04-09 | XR_ITS ---
XR foot RT min 3V DATE: 04/10/2021 00:54 INDICATION: Fall. Pain and swelling of right foot TECHNIQUE: 4 views COMPARISON: None FINDINGS: Diffuse osteopenia. Prominent osteoarthritic change at the first metatarsophalangeal joint. Mild plantar and posterior calcaneal enthesopathy. No fracture, dislocation, periosteal reaction or bone destruction. There is severe calcification of the anterior tibial and dorsalis pedis arteries as well as metatarsa l and digital artery calcifications, suggesting diabetes. Surgical clips are noted along the distal lower leg. 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
[2021-04-10] MEDS: MORPHINE SULFATE (*CRX) 4 MG/ML INJ IM (00:11)
[2021-04-10 00:14] VITALS: BP 151/70; PULSE 78; RESP 20; TEMP 36.6; O2SAT 95
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
--- NOTE | 2021-04-10 00:55 | ECG_ITS ---
Measurements Intervals [place] Rate: 82 P: 72 MT: 148 QRS: 84 QRSD: 106 T: 93 QT: 374 QTc: 439 Interpretive Statements SINUS RHYTHM ANTEROSEPTAL INFARCT, AGE INDETERMINATE BORDERLINE ST-T WAVE ABNORMALITY- DIFFUSE LEADS BASELINE WANDER- V4-V6 ABNORMAL ECG Electronically Signed On 04-10-2021 8:14:43 CDT by Gio Valle D.O.
[2021-04-10] MEDS: NITROGLYCERIN SL 0.4 MG TABLET SUBLINGUAL ×2 (01:00→02:06)
--- NOTE | 2021-04-10 01:05 | PC.NURSE ---
FAMILY AT DESK, DEMANDING TO SPEAK TO DOCTOR WITHOUT PATIENT PRESENT
--- NOTE | 2021-04-10 01:10 | PC.NURSE ---
FAMILY & MD AGREE FOR PATIENT TO BE ADMITTED FAMILY TRYING TO GET MD TO AGREE PATIENT HAS DEMENTIA AND NEEDS PSYCH FACILITY
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
[2021-04-10 01:38] VITALS: PULSE 80; RESP 18; O2SAT 98
[2021-04-10 01:46] VITALS: BP 150/66; PULSE 84; RESP 20; TEMP 36.4; O2SAT 94
--- NOTE | 2021-04-10 01:48 | PC.NURSE ---
[address], TIME, SELF; TOLD PULMONOLOGIST INTENSIVIST & MD HE DID NOT WANT ANY NEEDLE STICKS OR TEST.
[2021-04-10 02:34] VITALS: BMI 15.3
--- NOTE | 2021-04-10 02:51 | ADMGEN ---
This patient, Papa Kennedy, was admitted to 2nd Floor Room 207-2. Patient oriented to hospital policies and general routines including ID bracelet, bed and alarms, visiting hours, pain management, procedures, bathroom and other care routines, personal items, smoking policy, room service/diet, and visiting hours. Information on how to activate the Rapid Response Team has been discussed. Patient encouraged to report perceived risks to care and to ask questions if they do not understand what they are told or what they should do. Patient arrived at 0155 and c/o chest pain. MD on floor and PRN nitro given at 0206. Patient skin cool and dry. Mid-sternal pain rated at 9/10. Upon reassessment of chest pain- 0/10 patient states i feel mellow . Patient has stage 1 to coccyx; 0.5cm x 0.2cm; c/o pain to area at times- aquacel foam dressing appiled. Patient has multiple bruising to bilateral arms, purple in color. Skin tear to R elbow 0.5cm x 0.5cm. Dressing placed. Blood vessel popped in left outer sclera. Denies any pain to affected area. High risk for falls, bed alarm set and fall risk attached to patient bracelet. SBA assistance for ambulation in short distances.
[2021-04-10 03:10] VITALS: BP 148/68; PULSE 80; RESP 18; TEMP 36.4; O2SAT 98
--- NOTE | 2021-04-10 05:30 | PC.NURSE ---
Patient resting well. Bed alarm on. Patient gets out of bed without assistance or use of call light. Education given about safety. Patient unable to remember or comprehend teaching. Denies any c/o CP. Patient cooperative and appropriate.
[2021-04-10 07:44] VITALS: BP 149/65; PULSE 74; RESP 16; TEMP 36.2; O2SAT 97
[2021-04-10] MEDS: BUMETANIDE 1 MG TABLET 2 MG PO ×2 (08:26→16:31)
[2021-04-10] MEDS: ISOSORBIDE MONONITRATE 60 MG TAB.ER.24H PO (08:27)
[2021-04-10] MEDS: amLODIPine BESYLATE 5 MG TABLET PO ×2 (08:27→16:31)
--- NOTE | 2021-04-10 08:48 | PC.NURSE ---
Patient up in chair for breakfast. Took medications with no issues and has no c/o pain or discomfort at this time.
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
[2021-04-10] MEDS: cloNIDine 0.3 MG/24 HR PATCH 1 PATCH TRANSDERM (09:23)
[2021-04-10 16:00] VITALS: BP 146/83; PULSE 81; RESP 16; TEMP 36.1; O2SAT 99
--- NOTE | 2021-04-10 17:22 | PC.NURSE ---
Mr. Patrick, counselor from [facility], called and stated that he has attempted to call patient's daughter several times to let her know that after assessing the patient and speaking to the ER doctor it was decided that patient is not homicidal or suicidal and is deflected home. This nurse attempted to call daughter, Jackie, after several rings no answer.
[2021-04-11] VITALS: BP 139/99; PULSE 78; RESP 18; TEMP 36.3; O2SAT 98
--- NOTE | 2021-04-11 01:55 | PC.NURSE ---
Patient yelling out and cursing at freelance writer for taking BP. Patient kept moving arm around which caused BP cuff to increase. Foreign Food Specialty Cook explaining to keep arm still and taking patients hand to help relax. Patient yelling bullshit, bullshit at freelance writer. Then informed freelance writer that no further BP readings were going to happen.
--- NOTE | 2021-04-11 05:43 | PC.NURSE ---
Patient has urinated on the bathroom floor this shift x3. Import Specialist has attempted to assistance with toileting and hygiene. Patient has become very abrasive while talking with staff and name calling. Patient has attempted to urinate in sink with bathroom water running and in trash cans. Import Specialist as attempted to redirect patient to bathroom for use of toilet, patient jerks arm away and states i can do it .
[2021-04-11 07:22] VITALS: BP 125/61; PULSE 75; RESP 16; TEMP 36; O2SAT 97
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
[2021-04-11] MEDS: amLODIPine BESYLATE 5 MG TABLET PO (08:14)
[2021-04-11] MEDS: ISOSORBIDE MONONITRATE 60 MG TAB.ER.24H PO (08:14)
[2021-04-11] MEDS: BUMETANIDE 1 MG TABLET 2 MG PO (08:14)
--- NOTE | 2021-04-11 08:43 | PC.NURSE ---
Patient up in chair w/assist for breakfast w/no c/o pain or discomfort at this time.
[2021-04-11 09:08] LABS: SARS-CoV-2 Ag Negative (Negative)
[2021-04-11] MEDS: DOCUSATE SODIUM 100 MG CAPSULE PO (11:56)
[2021-04-11] MEDS: polyethylene glycoL 3350 17 GM POWD.PACK PO (11:57)
--- NOTE | 2021-04-11 13:51 | PC.NURSE ---
Patient is being discharged to [facility]. Report given to Nurse Muir at the facility.
--- NOTE | 2021-04-11 14:15 | PC.NURSE ---
Patient discharged to [facility] in [place] and transported via EMT. All personal belongings sent with patient. Receiving facility notified that patient has been picked up and in transit.
== END 2021-04-11 14:15 ==
LOC: CHSED 23:47 → CHS2ND 04-10 01:55
PROVIDERS: Nurse Practitioner; Admitting Provider Family Medicine; Emergency Provider Family Medicine; PCP Nurse Practitioner Family; Visit Provider Family Medicine
DX: R62.7 Adult failure to thrive (principal); I25.119 Atherosclerotic heart disease of native coronary artery with unspecified angina pectoris; I12.9 Hypertensive chronic kidney disease with stage 1 through stage 4 chronic kidney disease, or unspecified chronic kidney disease; N18.4 Chronic kidney disease, stage 4 (severe); D61.818 Other pancytopenia; E11.22 Type 2 diabetes mellitus with diabetic chronic kidney disease; E78.5 Hyperlipidemia, unspecified; K21.9 Gastro-esophageal reflux disease without esophagitis; K76.9 Liver disease, unspecified; R53.1 Weakness; F41.1 Generalized anxiety disorder; Z90.410 Acquired total absence of pancreas; Z90.49 Acquired absence of other specified parts of digestive tract; Z85.07 Personal history of malignant neoplasm of pancreas; Z95.1 Presence of aortocoronary bypass graft; Z87.891 Personal history of nicotine dependence; Z20.822 Contact with and (suspected) exposure to COVID-19
CPT/HCPCS: 73521; 73630; 87426; 93005; 96372; 97110; 97161; 97165; 97530; 99285; A9270; C9803; G0378; J2270

== ENCOUNTER 2021-05-13 10:57 | Observation (INO) | payer MEDICARE, SELFPAY ==
--- NOTE | ~2021-05-13 | XR_ITS ---
XR humerus RT DATE: 05/13/2021 20:33 INDICATION: Right arm pain TECHNIQUE: AP and lateral views COMPARISON: None FINDINGS: Diffuse osteopenia. Normal alignment at the acromioclavicular and glenohumeral joints and elbow joint. No fracture or dis location, periosteal reaction or bone destruction. Diffuse osteopenia. IMPRESSION: Osteopenia; no fracture or dislocation or bone destruction Reviewed, dictated and finalized at location A.
--- NOTE | ~2021-05-13 | US_ITS ---
EXAMINATION: US arterial duplex UE RT DATE: 05/13/2021 15:20 INDICATION: Right upper limb pain and swelling. TECHNIQUE: Multiple grayscale and Doppler ultrasound images of the right upper limb were obtained. COMPARISON: None FINDINGS: The right radial artery peak systolic velocity is 132 cm/s proximally, 179 cm/s at the fist kate, and 158 cm/s distal to the fistula. Peak systolic velocity is 93 cm/s in right brachial vein, 80 cm/s in right axillary vein, and 59 cm/s in right subclavian vein. IMPRESSION: 1. Patent right upper limb arteriovenous dialysis fistula. Reviewed, dictated and finalized at location B.
--- NOTE | ~2021-05-13 | US_ITS ---
US venous doppler UE RT DATE: 05/14/2021 18:06 INDICATION: Erythema, edema of right upper extremity TECHNIQUE: Real-time and color flow imaging and Doppler analysis of the right upper extremity veins, subclavian and right internal jugular vein COMPARISON: None FINDINGS: Flow is demonstrated in the right internal jugular, subclavian, axillary, brachial, basilic , cephalic and radial veins. The ulnar vein is not visualized. IMPRESSION: No deep venous thrombosis of the right upper extremity is detected Reviewed, dictated and finalized at Location [facility]. Reviewed, dictated and finalized at location A.
--- NOTE | ~2021-05-13 | XR_ITS ---
XR elbow RT min 3V DATE: 05/13/2021 20:33 INDICATION: Pain TECHNIQUE: 3 views COMPARISON: None FINDINGS: Osteopenia. No fracture or dislocation or joint effusion, periosteal reaction or bone destr uction is detected. Prominent arterial calcification is noted. IMPRESSION: Osteopenia; no fracture or dislocation or joint effusion Extensive arterial calcification Reviewed, dictated and finalized at location A.
[2021-05-13 11:30] VITALS: BP 135/75; PULSE 79; RESP 18; TEMP 36.3; O2SAT 100
[2021-05-13 11:51] LABS: Basophils Percent Auto 0.1 % (0.2-1.2); Eosinophils Percent Auto 0.1 % (0-4.4); Hematocrit 32.6 % (42.0-52.0); Hemoglobin 10.2 g/dL (14.0-18.0); Immature Granulocyte Absolute 0.19 K/mm3 (0.00-0.031); Immature Platelet Fraction Pct 3.3 % (0.9-11.2); Lymphocytes Percent Auto 3.3 % (18.3-44.2); Mean Corpuscular HGB Conc 31.3 g/dl (32-36); Mean Corpuscular Volume 92.6 fl (80-100); Mean Platelet Volume 12.2 fl (7.4-10.4); Monocytes Absolute Auto 0.5 K/mm3 (0.1-0.6); Monocytes Percent Auto 2.9 % (2.6-8.5); Neutrophils Percent Auto 92.6 % (45.5-73.1); Platelet Count Result 71 k/mm3 (150-375); Red Blood Count 3.52 M/mm3 (4.6-6.20); Red Cell Distribution Width 15.3 % (11.5-14.5); White Blood Count 18.4 K/mm3 (4.5-10.0)
[2021-05-13 12:43] LABS: Anion Gap 12 mmol/L (8-16); Blood Urea Nitrogen 58 mg/dL (9-20); Calcium 6.4 mg/dL (8.4-10.2); Carbon Dioxide 14 mmol/L (22-30); Chloride 112 mmol/L (98-107); Estimated CRCL calculation 5 ml/min; Estimated Glomerular Filt Rate 9; Glucose 58 mg/dL (65-110); Potassium 4.6 mmol/L (3.4-5.0); Sodium 138 mmol/L (137-145)
--- NOTE | 2021-05-13 12:53 | ED.GENADULT ---
HPI - General Adult General Chief complaint: Extremity Injury, Upper Stated complaint: Redness and swelling R arm Fistula Time Seen by Provider: 05/13/21 11:11 Source: patient History of Present Illness HPI narrative: Patient is a 85 y/o male complaining of right arm pain and redness starting 1 month ago. He describes his pain as burning and rates it as 10/10. He states that certain position makes his pain worse. He has no fever or chilling. He states that they're attempting to open up his fistula in that arm in anticipation of needing dialysis again in the near future. He was on dialysis for while, but stopped his dialysis treatment recently. Related Data Home Medications Medication Instructions Recorded Confirmed amlodipine 5 mg tablet 5 mg PO BID 08/29/19 04/10/21 isosorbide mononitrate 30 mg 60 mg PO DAILY tablet 03/06/20 04/10/21 tablet,extended release 24 hr clonidine 1 patch TRANSDERMAL WEEKLY 07/24/20 04/10/21 bumetanide 2 mg PO BID 04/07/21 04/10/21 calcitriol 0.25 mcg PO DAILY 04/07/21 04/10/21 acetaminophen 650 mg PO Q4H PRN 05/13/21 bisacodyl 10 mg RECTAL DAILY PRN 05/13/21 Allergies Allergy/AdvReac Type Severity Reaction Status Date / Time No Known Allergies Allergy Verified 05/13/21 11:36 Review of Systems Constitutional: Constitutional: Denies chills, Denies fever(s), Denies headache(s) and Denies weakness Eyes: Eyes: Denies blurry vision ENT: Denies headache(s) and Denies neck pain Cardiovascular: Cardiovascular: Denies chest pain and Denies dyspnea Respiratory: Respiratory: Denies cough and Denies dyspnea Gastrointestinal: Gastrointestinal: Denies abdominal pain, Denies diarrhea, Denies nausea and Denies vomiting Genitourinary: Genitourinary: Denies hematuria and Denies dysuria Musculoskeletal: Musculoskeletal: Denies back pain, Denies neck pain and Reports other (arm pain) Integumentary/Breasts: Skin/Breast: Reports erythema (right arm) Neurologic: Denies headache(s) and Denies weakness PMFSH Past Medical History Medical History Acute on chronic renal failure CAD (coronary artery disease) Cancer of pancreas Chronic liver disease Chronic renal insufficiency, stage IV (severe) Hip pain Hyperlipidemia associated with type 2 diabetes mellitus Hypertension associated with diabetes Nicotine dependence Pancytopenia Type 2 diabetes mellitus Underweight Urinary tract infection Surgical History Surgical History Acquired absence of other specified parts of digestive tract Whipple Procedure History of cataract surgery History of cholecystectomy History of pancreatectomy S/P CABG x 2 Family History Family History Mother Acute myocardial infarction Father Family history of coronary artery disease Other Hypertension Social History Social History Smoking packs per day: 5 Smoking cigarettes per day: 100.0 Years smoked: 25 Smoking pack-years: 125.00 Smoking status: Former smoker Tobacco type: cigarettes Second hand tobacco smoke exposure: No Alcohol intake: former Drinks per week: 0 Alcohol use details: denies Substance use: never Substance use type: does not use Additional occupation/education comments: [employer] Gender identity (if verbalized by the patient): Male Spiritual care concerns: No Exam Const: General: no acute distress and ill appearing Orientation/consciousness: oriented to person, oriented to place, oriented to time and patient oriented x3 HENMT: Head: normocephalic Ears: external ears normal General nose exam: Normal external nose present Eyes: General: appearance normal, both eyes and all related structures Conjunctivae: conjunctivae normal Neck: Neck: normal visual inspection and full ROM Chest: Chest pa
--- NOTE | 2021-05-13 13:01 | PC.NURSE ---
Pt given box lunch at this time
[2021-05-13 13:59] VITALS: BP 131/89; PULSE 81; RESP 16; O2SAT 100
[2021-05-13 14:03] LABS: Glucose Point of Care 85 mg/dl (65-105)
[2021-05-13 16:17] VITALS: BP 132/66; PULSE 73; RESP 18; O2SAT 100
[2021-05-13 16:52] LABS: Glucose Point of Care 116 mg/dl (65-105)
[2021-05-13 17:00] VITALS: BP 139/70; PULSE 74; RESP 14; TEMP 36.4; O2SAT 100
[2021-05-13 17:01] VITALS: BMI 15.5
--- NOTE | 2021-05-13 17:09 | PC.NURSE ---
pt stated that he lives in a private residence with his . Pt then stated that his left me and I don't give a damn where she is. Pt then stated that he was forced to quarantine in [facility] for 45 days because his neighbor, who is a hairdresser, had the flu ; pt continued with, the doctor then made me quarantine for another 14 days because she was my neighbor and I was exposed to her flu. I asked pt orientation questions including if he knew where he was and why he was here to which he replied, the hospital because my daughter still believes in the healthcare profession. I asked him why his daughter would bring him to the hospital and he stated that he fell; however, when I had asked him if he had ever fallen he previously stated that he had never fallen. I then asked him again, why he was here and he said that he fell and came via ambulance.
--- NOTE | 2021-05-13 19:35 | PM.IMHP ---
H&P: HPI History of Present Illness Date/Time: 05/13/21 19:35 Chief Complaint: Right arm pain and swelling Narrative: Patient is an 85-year-old male with high blood pressure presenting with about 1 month of worsening right arm swelling and pain. The rash and pain started close to the elbow, and slowly grew out in both directions, distally down forearm, and proximally up the arm. He denies any systemic symptoms including fevers, chills, nausea, vomiting, other aches and pains, lethargy, syncope. He has never had these symptoms before. He took Tylenol and aspirin at home for the pain, which did help. Does not recall any trauma or specific inciting event. Past medical history: High blood pressure Allergies: Not aware of any allergies Medications: Only once he takes are [place] a clonidine patch, amlodipine, Imdur Family history: Unaware of major health problems in his family Social history: Denies any significant drug alcohol or tobacco use Surgeries: None recently ER course: Vitals unremarkable, including no fever, hypotension, tachypnea Labs significant for leukocytosis to 18.4 hemoglobin of 10.2 non gap acidosis, kidney injury Right upper extremity ultrasound: No DVT identified, patent dialysis fistula Review of Systems Review of Systems: All systems reviewed & are unremarkable except as noted in HPI and below Constitutional: Constitutional: Reports no additional constitutional complaints Cardiovascular: Cardiovascular: Denies chest pain, Denies diaphoresis and Denies palpitations Respiratory: Respiratory: Denies cough, Denies hemoptysis, Denies dyspnea and Denies dyspnea on exertion Gastrointestinal: Gastrointestinal: Denies no additional gastrointestinal complaints, Denies abdominal pain, Denies bloating, Denies constipation and Denies diarrhea Integumentary/Breasts: Skin/Breast: Denies pruritus, Reports erythema, Reports rash, Reports skin pain and Reports unusual bruising Neurologic: Reports system reviewed and no additional complaints, except as documented Psychiatric: Psychiatric: Reports no additional psychiatric complaints [facility] Past Medical History Medical History (Updated 05/13/21 @ 19:54 by Lacey Sepulveda MD) Acute on chronic renal failure CAD (coronary artery disease) Cancer of pancreas Chronic liver disease Chronic renal insufficiency, stage IV (severe) Frequent falls Hip pain Hyperlipidemia associated with type 2 diabetes mellitus Hypertension associated with diabetes Nicotine dependence Pancytopenia Type 2 diabetes mellitus Underweight Urinary tract infection Surgical History Surgical History Acquired absence of other specified parts of digestive tract Whipple Procedure History of cataract surgery History of cholecystectomy History of pancreatectomy S/P CABG x 2 Family History Family History Mother Acute myocardial infarction Father Family history of coronary artery disease Other Hypertension Social History Social History Smoking packs per day: 5 Smoking cigarettes per day: 100.0 Years smoked: 25 Smoking pack-years: 125.00 Smoking status: Former smoker Tobacco type: cigarettes Second hand tobacco smoke exposure: No Alcohol intake: never Drinks per week: 0 Alcohol use details: denies Substance use: never Substance use type: does not use Additional occupation/education comments: [employer] Gender identity (if verbalized by the patient): Male Spiritual care concerns: No Meds Home Medications and Allergies Home Medications Medication Instructions Recorded Confirmed Type amlodipine 5 mg tablet 5 mg PO BID 08/29/19 05/13/21 History nitroglycerin [Nitrostat] 0.4 mg SUBLINGUAL Q5-15M PRN #30 03/03/20 05/13/21 Rx tablet isosorbide mononitrate 30 mg 60 mg PO DAILY tablet
[2021-05-13] MEDS: HYDROcodone/acetaminophen (*CRX) 10-325 MG TABLET 1 TAB PO (20:43)
[2021-05-13 22:00] VITALS: BP 135/68; PULSE 68; RESP 18; TEMP 36.7; O2SAT 98
[2021-05-13] MEDS: DOCUSATE SODIUM 100 MG CAPSULE PO (22:39)
[2021-05-13] MEDS: amLODIPine BESYLATE 5 MG TABLET PO (22:39)
[2021-05-14] VITALS (8 sets, daily range): BP systolic 127–135; BP diastolic 63–91; PULSE 56–92; RESP 16–18; TEMP 36–36.8; O2SAT 94–99; BMI 15.5
[2021-05-14 00:26] LABS: Glucose Point of Care 123 mg/dl (65-105)
[2021-05-14 08:09] LABS: Basophils Percent Auto 0.1 % (0.2-1.2); Eosinophils Percent Auto 0.2 % (0-4.4); Hematocrit 28.8 % (42.0-52.0); Hemoglobin 8.9 g/dL (14.0-18.0); Immature Granulocyte Absolute 0.04 K/mm3 (0.00-0.031); Immature Granulocyte Percent A 0.5 % (0-0.5); Immature Platelet Fraction Pct 3.2 % (0.9-11.2); Mean Corpuscular HGB Conc 30.9 g/dl (32-36); Mean Corpuscular Hemoglobin 28.8 pg (26-34); Mean Corpuscular Volume 93.2 fl (80-100); Mean Platelet Volume 11.4 fl (7.4-10.4); Monocytes Absolute Auto 0.4 K/mm3 (0.1-0.6); Monocytes Percent Auto 4.4 % (2.6-8.5); Neutrophils Absolute Auto 6.8 K/mm3 (1.3-6.7); Neutrophils Percent Auto 84.8 % (45.5-73.1); Platelet Count Result 49 k/mm3 (150-375); Red Blood Count 3.09 M/mm3 (4.6-6.20); Red Cell Distribution Width 15.1 % (11.5-14.5)
[2021-05-14 08:19] LABS: Alanine Aminotransferase 13 U/L (4-50); Albumin Level 2.1 g/dL (3.5-5.1); Alkaline Phosphatase 107 U/L (38-126); Anion Gap 12 mmol/L (8-16); Aspartate Amino Transferase 17 U/L (17-59); Bilirubin,Total 0.3 mg/dL (0.2-1.3); Blood Urea Nitrogen 58 mg/dL (9-20); Calcium 5.9 mg/dL (8.4-10.2); Carbon Dioxide 14 mmol/L (22-30); Chloride 108 mmol/L (98-107); Estimated CRCL calculation 5 ml/min; Estimated Glomerular Filt Rate 9; Glucose 92 mg/dL (65-110); Magnesium 1.6 mg/dL (1.6-2.3); Potassium 4.6 mmol/L (3.4-5.0); Sodium 134 mmol/L (137-145)
[2021-05-14 08:35] LABS: Glucose Point of Care 81 mg/dl (65-105)
[2021-05-14] MEDS: amLODIPine BESYLATE 5 MG TABLET PO ×2 (10:50→21:03)
[2021-05-14] MEDS: HYDROcodone/acetaminophen (*CRX) 10-325 MG TABLET 1 TAB PO (10:50)
[2021-05-14] MEDS: ISOSORBIDE MONONITRATE 60 MG TAB.ER.24H PO (10:51)
--- NOTE | 2021-05-14 10:53 | WPDINFPN2 ---
Progress Note: A&P Assessment and Plan (1) Edema of right upper extremity: Code(s): R60.0 - Localized edema Status: Acute Assessment and Plan: 1. Edema and pain of RUE due to vascular insufficiency and fistula. He has no cellulitis. 2. Leukocytosis, rapidly resolved, physiologic 3. CRI 4. Frequent falls 5. Cachexia REC No further empiric antibiotics. Analgesics, should get opinion from the operating surgeon at [facility]. Call if + blood cultures, sign off. Subjective Date/time seen: 05/14/21 10:53 Objective Data Vital Signs Vital Signs: Vital Signs - 24 hr 05/13/21 11:30 05/13/21 13:59 05/13/21 16:17 Temperature 36.3 C L Pulse Rate 79 81 73 Respiratory Rate 18 16 18 Blood Pressure 135/75 131/89 132/66 Pulse Oximetry 100 100 100 05/13/21 17:00 05/13/21 22:00 05/14/21 04:00 Temperature 36.4 C 36.7 C Pulse Rate 74 68 56 L Respiratory Rate 14 18 Blood Pressure 139/70 135/68 Pulse Oximetry 100 98 05/14/21 04:43 Temperature 36.8 C Pulse Rate 62 Respiratory Rate 16 Blood Pressure 127/63 Pulse Oximetry 94 Intake/Output Intake/Output: Intake & Output 05/11/21 05/12/21 05/13/21 05/14/21 23:59 23:59 23:59 23:59 Intake Total 400 450 Balance 400 450 Meds/Results Medications: Active Medications Generic Name Dose Route Start Last Admin Trade Name Freq PRN Reason Stop Dose Admin Hydrocodone Bitart/Acetaminophen 1 tab 05/13/21 19:33 05/14/21 10:50 Hydrocodone/Acetaminophen (*Crx) 10-325 Mg Tablet PO 1 tab Q6H PRN Administration Pain Rated 7-10 Amlodipine Besylate 5 mg 05/13/21 21:00 05/14/21 10:50 Amlodipine Besylate 5 Mg Tablet PO 5 mg Q12HR SAMMY Administration Bisacodyl 10 mg 05/13/21 19:34 Bisacodyl 10 Mg Suppository RECTAL DAILY PRN Constipation Clonidine HCl 1 patch 05/15/21 09:00 Clonidine 0.3 Mg/24 Hr Patch TRANSDERM WEEKLY SAMMY Docusate Sodium 100 mg 05/13/21 21:00 05/13/21 22:39 Docusate Sodium 100 Mg Capsule PO 100 mg Q12HR SAMMY Administration Heparin Sodium (Porcine) 5,000 units 05/14/21 06:00 05/14/21 10:42 Heparin Sodium 5,000 Units/Ml Vial SUB-Q Not Given Q8HR SAMMY Vancomycin HCl 750 mg in 250 mls @ 250 mls/hr 05/13/21 20:04 Vancomycin 750 Mg/D5w 250 Ml IVPB PRN PRN PER LEVELS Piperacillin Sod/Tazobactam Sod 2.25 gm in 50 mls @ 100 mls/hr 05/13/21 22:00 05/14/21 06:08 Zosyn 2.25 Gm/D5w 50 Ml IVPB Infused Q8H SAMMY Infusion Isosorbide Mononitrate 60 mg 05/14/21 09:00 05/14/21 10:51 Isosorbide Mononitrate 60 Mg Tab.Er.24h PO 60 mg DAILY SAMMY Administration Radiology Results: ITS Impressions Duplex Scan Upper Extremity Artery 05/13/21 15:29 IMPRESSION: 1. Patent right upper limb arteriovenous dialysis fistula. Elbow X-Ray 05/13/21 20:36 IMPRESSION: Osteopenia; no fracture or dislocation or joint effusion Extensive arterial calcification Humerus X-Ray 05/13/21 20:39 IMPRESSION: Osteopenia; no fracture or dislocation or bone destruction Labs Labs: Laboratory Results - last 24 hr 05/13/21 05/13/21 05/13/21 11:40 11:40 13:57 WBC 18.4 H RBC 3.52 L Hgb 10.2 L Hct 32.6 L MCV 92.6 MCH 29.0 MCHC 31.3 L RDW 15.3 H Plt Count 71 L MPV 12.2 H Immature Gran % (Auto) 1.0 H Neut % (Auto) 92.6 H Lymph % (Auto) 3.3 L [place] % (Auto) 2.9 Eos % (Auto) 0.1 Baso % (Auto) 0.1 L Lymph # (Auto) 0.60 L [place] # (Auto) 0.5 Eos # (Auto) 0.0 Baso # (Auto) 0.0 Abs Immat Gran (auto) 0.19 H Absolute Neuts (auto) 17.0 H Absolute Nucleated RBC 0.0 Nucleated RBC % 0.0 % Immature Plt Fraction 3.3 Sodium 138 Potassium 4.6 Chloride 112 H Carbon Dioxide 14 L Anion Gap 12 BUN 58 H D Creatinine 6.20 H Estim Creat Clear Calc 5 Estimated GFR 9 L Glucose 58 L* POC Capillary Glucose 85 Calcium 6.4 L Phosphorus Magnesium
[2021-05-14] MEDS: DOCUSATE SODIUM 100 MG CAPSULE PO ×2 (10:54→21:03)
[2021-05-14 12:30] LABS: Glucose Point of Care 77 mg/dl (65-105)
--- NOTE | 2021-05-14 14:45 | CONS_ITS ---
DATE OF CONSULTATION: 05/14/2021 REASON FOR CONSULTATION: Edema of the right arm. HISTORY OF PRESENT ILLNESS: 85-year-old male who is a poor historian. He tells me he fell about 2 months ago as he tripped over a sidewalk edge. He knows of no particular trauma to the right arm and tells me he landed on every part of his body. Chart indicates he suffers from frequent falls overall and this was not an isolated event. His history varies in that he tells me he was discharged from [facility] last week after a 45-day stay, but his medical record indicates only an overnight stay last month for chest pain. He tells me he was at [facility] last month also for placement of a fistula in the right arm for dialysis. He tells me he has never been on hemodialysis though his record indicates otherwise. He does tell me he was on peritoneal dialysis, but that it did not work, cannot provide details. He was unhappy with the care of the surgeons who placed the fistula and it has not been in use since then. He tells me he has been in contact with multiple physicians for pain and swelling in the arm, but no one has been able to help. He presented to the emergency room last evening and was admitted after his white count was found to be 18. The patient denies any previous leukocytosis that he is aware of, and I asked him in layman's terms. He denies to me any recent antibiotic use, fever, chills, sweats. He knows of no other trauma, but does have thin skin, easy bruisability in all 4 extremities. He tells me he has lost 60 pounds of weight, but cannot provide any reason from his standpoint. ALLERGIES: NONE KNOWN. MEDICATIONS: Extensive list noted. No immunosuppressants. Current medications, piperacillin and vancomycin. HABITS: No alcohol. Ex-smoker. PAST MEDICAL HISTORY: Chronic renal insufficiency, not on dialysis in the last month; CAD; pancreatic cancer, apparently underwent Whipple procedure as a result; hyperlipidemia; diabetes mellitus type 2; previous pancytopenia; previous UTI; cataract surgery; CABG; cholecystectomy. FAMILY HISTORY: Hypertension, CAD. 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 He is listed as . No family at the bedside. Lives in [place]. REVIEW OF SYSTEMS: 14-point review otherwise negative. No compromise by the patient's memory deficit. PHYSICAL EXAMINATION: GENERAL: This is a cachectic male. VITAL SIGNS: 127/63, 62, 16, afebrile, 94% on room air. SKIN: Multiple ecchymoses. Poor skin turgor. Thin skin. No rashes. Warm and dry. NODES: He has no axillary, cervical, or epitrochlear adenopathy. EENT: Eyes are sunken. Pupils equal, round, reactive. Oropharynx, oral mucosa normal. Dry mucous membranes. Poor dentition. NECK: No meningismus, thyromegaly, or masses. LUNGS: Clear to auscultation and percussion. CARDIAC: Soft S1, S2. Regular rate and rhythm. No murmurs. Radial pulses are trace bilaterally. ABDOMEN: Scaphoid, nontender. No masses are palpable. EXTREMITIES: Marked muscle wasting, lower extremities. MUSCULOSKELETAL: He has 1+ nonpitting edema of the right arm. There is a minimal thrill at the right antecubital area. Surgical scar is well healed. He has minimal erythema of the entire right arm without tenderness, warmth, crepitus, or sinus tracts. He has several crusted areas of skin trauma. LABORATORY DATA: Blood cultures, no growth after 1 day's incubation. MRSA screen in process. His white count on arrival was 18.4, now back to normal at 8.0, hemoglobin 8.9, platelets are 49,000. BUN 58, creatinine 5.9. His sodium is low. CO2 is 14, calcium 5.9, phosphorus is high, albumin 2.1. RADIOLOGY: Plain films of the humerus, osteopenia. Elbow x-rays, same with exte
--- NOTE | 2021-05-14 15:54 | PM.IMPN ---
Progress Note: A&P Assessment and Plan (1) Edema of right upper extremity: Code(s): R60.0 - Localized edema Status: Acute Assessment and Plan: Presented with right upper extremity swelling ongoing for 1 month with increased redness. Initially felt to be cellulitis, however no systemic signs or symptoms to suggest infection. Evaluated by Infectious Disease, and ultimately not felt to be cellulitis. More likely to be related to vascular insufficiency in the setting of AV fistula IV antibiotics discontinued. Blood cultures are pending and will await results Will attempt to obtain records regarding AV fistula which was completed at [facility]. Will need to plan for follow-up with his surgeon Right upper extremity arterial duplex showed patent AV fistula. Elbow x-ray without effusion, fracture, or dislocation and extensive arterial calcification. Humerus x-ray no fracture or dislocation. Will obtain venous Doppler Supportive care. Elevate extremity and provide warm compresses (2) HTN (hypertension): Code(s): I10 - Essential (primary) hypertension Status: Acute Assessment and Plan: Blood pressure reviewed and has been fairly well controlled. Last BP 135/91. 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 William. AV fistula placed approximately 1 year ago in preparation for possible dialysis, however now patient states he does not wish to be started on dialysis should the need arise. Monitor kidney function and electrolytes (4) Anemia of chronic renal failure, stage 4 (severe): Code(s): N18.4 - Chronic kidney disease, stage 4 (severe); D63.1 - Anemia in chronic kidney disease Status: Acute Assessment and Plan: H&H remaining relatively consistent with baseline Monitor CBC (5) Frequent falls: Code(s): R29.6 - Repeated falls Status: Acute Assessment and Plan: Has had multiple falls. Hospitalized at [facility] 1 month ago due to fall. Fall precautions in place Appreciate PT/OT eval (6) Thrombocytopenia: Code(s): D69.6 - Thrombocytopenia, unspecified Status: Acute Assessment and Plan: Chronic on review of prior labs, platelet count [id number] today Monitor CBC. No further workup at this time given chronicity Subjective Date/time seen: 05/14/21 15:54 Interval history: Date of service: 05/14/2021 Papa puente is an 85-year-old male with history of CKD, CAD, hypertension, hyperlipidemia, and several other comorbidities who is seen in follow up for right arm pain and redness. He is feeling in his usual state of health at this time. He has no pain. Denies arm pain. Endorses right arm swelling but denies warmth or drainage. Denies numbness or tingling of the extremities. No fevers, chills, nausea, vomiting. Denies shortness breath, cough, chest pain, palpitations. No abdominal pain. Appetite is good. Endorses occasional dysphagia with solid foods but denies coughing. He did become quite irritated when I asked him certain questions that he had already answered earlier today. Asked me multiple times to leave the room, however I was able to convince him to allow me to examine his arm before leaving. Spoke with patient's stepdaughter via phone to provide updates. She informs that he had an AV fistula placed approximately 1 year ago, possibly less, although never had the intention to do dialysis. Stated he wanted to get this in case he would need dialysis down the line. Now, he is adamant that he does not wish to ever have dialysis. He is established with rag inspector, Dr. William. Also reports that he has had issues with mood swings and explosive temper. Recently, he has been refusing to take any medications
--- NOTE | 2021-05-14 18:08 | PC.NURSE ---
pt pulled his IV out of his arm; pt then pulled the bandage I was using to stop the blood off; when I attempted to place a new bandage on the arm in an attempt to stop the blood (which was now all over his clothes, the bed, the bed sheet, the blankets, and the floor, pt pushed me away and screamed why the hell are you worried about a few damn drops of blood on a sheet. I replied, I'm attempting to help you and to stop the bleeding. Pt then screamed at me to leave him alone. I repeated, I'm trying to help you. Don't you want me to stop the bleeding to which pt screamed, No! Leave me the hell alone and come back in a year. I then stated, Sir I'm trying to help you there is no need for you to scream and be hateful with me. Pt then screamed again, Get the hell out of here. I will be hateful with you if I want to! I then stated I will return when you have calmed down and are prepared to talk calmly to me. I left the room at this time.
[2021-05-14 18:33] LABS: Glucose Point of Care 167 mg/dl (65-105)
[2021-05-15] VITALS (8 sets, daily range): BP systolic 102–131; BP diastolic 49–80; PULSE 60–79; RESP 14–16; TEMP 36–36.4; O2SAT 98–100
[2021-05-15] MEDS: HYDROcodone/acetaminophen (*CRX) 10-325 MG TABLET 1 TAB PO (03:55)
[2021-05-15 06:03] LABS: Hematocrit 29.6 % (42.0-52.0); Hemoglobin 9.2 g/dL (14.0-18.0); Mean Corpuscular HGB Conc 31.1 g/dl (32-36); Mean Corpuscular Volume 93.4 fl (80-100); Mean Platelet Volume 10.2 fl (7.4-10.4); Platelet Count Result 54 k/mm3 (150-375); Red Blood Count 3.17 M/mm3 (4.6-6.20); Red Cell Distribution Width 15.2 % (11.5-14.5); White Blood Count 9.8 K/mm3 (4.5-10.0)
[2021-05-15 06:27] LABS: Alanine Aminotransferase 12 U/L (4-50); Albumin Level 2.1 g/dL (3.5-5.1); Alkaline Phosphatase 109 U/L (38-126); Anion Gap 11 mmol/L (8-16); Aspartate Amino Transferase 17 U/L (17-59); Bilirubin,Total 0.4 mg/dL (0.2-1.3); Blood Urea Nitrogen 61 mg/dL (9-20); Calcium 5.9 mg/dL (8.4-10.2); Carbon Dioxide 14 mmol/L (22-30); Chloride 113 mmol/L (98-107); Estimated CRCL calculation 5 ml/min; Estimated Glomerular Filt Rate 9; Glucose 72 mg/dL (65-110); Magnesium 1.8 mg/dL (1.6-2.3); Potassium 4.8 mmol/L (3.4-5.0); Sodium 138 mmol/L (137-145)
[2021-05-15 08:48] LABS: Glucose Point of Care 63 mg/dl (65-105)
[2021-05-15] MEDS: DOCUSATE SODIUM 100 MG CAPSULE PO ×2 (08:54→21:39)
[2021-05-15] MEDS: amLODIPine BESYLATE 5 MG TABLET PO ×2 (08:54→21:39)
[2021-05-15] MEDS: ISOSORBIDE MONONITRATE 60 MG TAB.ER.24H PO (08:55)
[2021-05-15 09:21] LABS: Glucose Point of Care 67 mg/dl (65-105)
--- NOTE | 2021-05-15 09:26 | PCOTNOTE ---
Addendum entered by Elsa Light, OT 05/15/21 09:28: Will follow up later today Original Note: Attempted to see pt. Nurse put on hold due to low blood sugar.
[2021-05-15] MEDS: cloNIDine 0.3 MG/24 HR PATCH 1 PATCH TRANSDERM (10:01)
[2021-05-15 10:11] LABS: Glucose Point of Care 122 mg/dl (65-105)
--- NOTE | 2021-05-15 13:26 | PM.IMPN ---
Progress Note: A&P Assessment and Plan (1) Edema of right upper extremity: Code(s): R60.0 - Localized edema Status: Acute Assessment and Plan: Presented with right upper extremity swelling ongoing for 1 month with increased redness. Initially felt to be cellulitis, however no systemic signs or symptoms to suggest infection. Evaluated by Infectious Disease, and ultimately not felt to be cellulitis. More likely to be related to vascular insufficiency in the setting of AV fistula IV antibiotics discontinued 05/14. Blood cultures negative to date and will monitor Received records regarding AV fistula angioplasty on 09/09/20. At this time, will hold on contacting surgeon while family decides how they wish to proceed. Daughter does not feel patient would agree to outpatient follow up. Right upper extremity arterial duplex showed patent AV fistula. Elbow x-ray without effusion, fracture, or dislocation and extensive arterial calcification. Humerus x-ray no fracture or dislocation. Venous doppler negative for DVT. Supportive care. Elevate extremity and provide warm compresses. He has had significant improvement. 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 William. AV fistula placed approximately 9 months ago in preparation for possible dialysis. Patient adamantly refuses dialysis. Reviewed labs and discussed case with supervisor garage, Dr. Nunez. At this time will hold on consultation as patient does not wish to undergo treatment with dialysis or further testing. Monitor kidney function and electrolytes Creatinine is 6.1 today and GFR is 9. (3) Encounter for hospice care discussion: Code(s): Z71.89 - Other specified counseling Status: Acute Assessment and Plan: Please see subjective for further details. Care coordination consultation for hospice referral per request of healthcare Antoinette CALERO. (4) HTN (hypertension): Code(s): I10 - Essential (primary) hypertension Status: Acute Assessment and Plan: Blood pressure reviewed and has been fairly well controlled. Last BP 131/80. Continue home regimen with amlodipine and clonidine patch (5) Anemia of chronic renal failure, stage 4 (severe): Code(s): N18.4 - Chronic kidney disease, stage 4 (severe); D63.1 - Anemia in chronic kidney disease Status: Acute Assessment and Plan: H&H remaining relatively consistent with baseline Monitor CBC (6) Frequent falls: Code(s): R29.6 - Repeated falls Status: Acute Assessment and Plan: Has had multiple falls. Hospitalized at [facility] 1 month ago due to fall but has refused therapy at his nursing facility. Fall precautions in place Appreciate PT/OT eval if pt agreeable (7) Thrombocytopenia: Code(s): D69.6 - Thrombocytopenia, unspecified Status: Acute Assessment and Plan: Chronic on review of prior labs, platelet count [id number] today Monitor CBC. No further workup at this time given chronicity (8) Protein calorie malnutrition: Code(s): E46 - Unspecified protein-calorie malnutrition Status: Acute Assessment and Plan: BMI is 15 and he is very frail Regular diet to increase calorie intake Dietary supplements He refuses meals frequently per daughter and NH staff (9) Dementia: Code(s): F03.90 - Unspecified dementia without behavioral disturbance Status: Acute Assessment and Plan: Highly suspected. Patient exhibits confusion in conversation and per daughter and assisted staff, often displays signs of memory loss. Monitor mental status Subjective Date/time seen: 05/15/21 13:26 Interval history: Date of service: 05/15/2021 Papa puente is an 85-year-old male with his
[2021-05-15 13:50] LABS: Glucose Point of Care 159 mg/dl (65-105)
[2021-05-15 17:39] LABS: Glucose Point of Care 78 mg/dl (65-105)
[2021-05-15 21:11] LABS: Glucose Point of Care 86 mg/dl (65-105)
[2021-05-16] MEDS: HYDROcodone/acetaminophen (*CRX) 10-325 MG TABLET 1 TAB PO (00:31)
[2021-05-16 05:13] VITALS: BP 112/53; PULSE 64; RESP 16; TEMP 36.1; O2SAT 100
[2021-05-16 08:05] LABS: Hematocrit 29.6 % (42.0-52.0); Hemoglobin 8.1 g/dL (14.0-18.0); Immature Platelet Fraction Pct 1.7 % (0.9-11.2); Mean Corpuscular HGB Conc 27.4 g/dl (32-36); Mean Corpuscular Hemoglobin 28.6 pg (26-34); Mean Corpuscular Volume 104.6 fl (80-100); Mean Platelet Volume 10.7 fl (7.4-10.4); Platelet Count Result 70 k/mm3 (150-375); Red Blood Count 2.83 M/mm3 (4.6-6.20); Red Cell Distribution Width 15.2 % (11.5-14.5); White Blood Count 5.9 K/mm3 (4.5-10.0)
[2021-05-16 08:21] LABS: Anion Gap 9 mmol/L (8-16); Blood Urea Nitrogen 61 mg/dL (9-20); Calcium 6.1 mg/dL (8.4-10.2); Carbon Dioxide 15 mmol/L (22-30); Chloride 112 mmol/L (98-107); Estimated CRCL calculation 5 ml/min; Estimated Glomerular Filt Rate 9; Glucose 77 mg/dL (65-110); Potassium 4.9 mmol/L (3.4-5.0); Sodium 136 mmol/L (137-145)
[2021-05-16] MEDS: amLODIPine BESYLATE 5 MG TABLET PO (08:51)
[2021-05-16] MEDS: DOCUSATE SODIUM 100 MG CAPSULE PO (08:51)
[2021-05-16] MEDS: ISOSORBIDE MONONITRATE 60 MG TAB.ER.24H PO (08:51)
--- NOTE | 2021-05-16 13:24 | PM.DS ---
DS: Admitting Diagnosis Admitting Diagnosis Right arm cellulitis DS: Discharge Diagnosis Discharge Diagnosis (1) Edema of right upper extremity: Code(s): R60.0 - Localized edema Status: Acute Assessment and Plan: Presented with right upper extremity swelling ongoing for 1 month with increased redness. Initially felt to be cellulitis, however no systemic signs or symptoms to suggest infection. He was evaluated by Infectious Disease, and ultimately not felt to be consistent with cellulitis. [place] to be more likely vascular insufficiency in the setting of AV fistula. Right upper extremity arterial duplex showed patent AV fistula. Elbow x-ray without effusion, fracture, or dislocation and extensive arterial calcification. Humerus x-ray no fracture or dislocation. Venous doppler negative for DVT. IV antibiotics were discontinued on 05/14/2021 per Infectious Disease recommendations. Preliminary blood cultures negative to date and final cultures we monitored. He did have marked leukocytosis on presentation with rapid resolution not felt to be indicative of sepsis or infectious process. Received records regarding AV fistula angioplasty on 09/09/20 at [facility]. Recommended by ID to contact vascular surgeon. However, at this time, will hold on contacting surgeon as patient had symptomatic improvement and indicated that he would not wish to follow-up with the vascular surgeon. His daughter reports that he has refused all outpatient follow-up appointments. He did have improvement with supportive care including elevation and warm compresses. Discussed at length that if he continues to have pain or discomfort, he should follow-up with his vascular surgeon. If he were to develop fever, chills, or signs of infection, would need to be re-evaluated for this. Discussed this with patient and daughter. Continue with supportive care (2) CKD (chronic kidney disease) stage 5, GFR less than 15 ml/min: Code(s): N18.5 - Chronic kidney disease, stage 5 Status: Acute Assessment and Plan: Established with Dr. William. AV fistula placed approximately 9 months ago in preparation for possible dialysis. However, following placement of AV fistula, patient adamantly refused dialysis and told me he would never consider dialysis. I reviewed this case and the patient's labs with steam hand, Dr. Nunez. No consultation felt to be needed as the patient did not wish to proceed with workup or treatment, and ultimately decided to proceed with hospice care. (3) Encounter for hospice care discussion: Code(s): Z71.89 - Other specified counseling Status: Acute Assessment and Plan: Because of the patient's progression to end-stage renal disease an admit refusal for dialysis, hospice care was discussed. Patient reports he does not want any invasive treatments or workups and simply wanted to be left alone and be comfortable. Long conversation with the patient's healthcare POA/daughter, Antoinette. Hospice consultation arranged for care coordination and patient and family ultimately decided to proceed with hospice care at the patient's [facility]. Discharged to hospice on 05/16/2021. (4) HTN (hypertension): Code(s): I10 - Essential (primary) hypertension Status: Acute Assessment and Plan: Blood pressure reviewed and were fairly well controlled. Continue home regimen with amlodipine and clonidine patch (5) Anemia of chronic renal failure, stage 4 (severe): Code(s): N18.4 - Chronic kidney disease, stage 4 (severe); D63.1 - Anemia in chronic kidney disease Status: Acute Assessment and Plan: H&H remained relatively consistent with baseline (6) Frequent falls: Code(s): R29.6 - Repeated falls Status: Acute Assessment and Plan: Has had multiple falls. Hospitalized at [facility] 1 month ago due to fall but has refused therapy at his nursing facility
[2021-05-16 14:00] VITALS: BP 115/52; PULSE 62; RESP 16; TEMP 37; O2SAT 100
== END 2021-05-16 18:55 | disposition hospice, home (50) ==
LOC: ANHED 11:40 → ANH2MED 16:19
PROVIDERS: Physician Assistant; Admitting Provider Internal Medicine; Emergency Provider Emergency Medicine; Visit Provider Internal Medicine
DX: R60.0 Localized edema (principal); M79.621 Pain in right upper arm; R29.6 Repeated falls; N18.5 Chronic kidney disease, stage 5; D63.1 Anemia in chronic kidney disease; E78.5 Hyperlipidemia, unspecified; E11.9 Type 2 diabetes mellitus without complications; E46 Unspecified protein-calorie malnutrition; E11.22 Type 2 diabetes mellitus with diabetic chronic kidney disease; D69.6 Thrombocytopenia, unspecified; I25.10 Atherosclerotic heart disease of native coronary artery without angina pectoris; I12.0 Hypertensive chronic kidney disease with stage 5 chronic kidney disease or end stage renal disease; M79.89 Other specified soft tissue disorders; Z95.1 Presence of aortocoronary bypass graft; Z85.07 Personal history of malignant neoplasm of pancreas; Z68.1 Body mass index [BMI] 19.9 or less, adult; Z87.891 Personal history of nicotine dependence
CPT/HCPCS: 36415; 73060; 73080; 80048; 80053; 82948; 83735; 84100; 85025; 85027; 85055; 87040; 87076; 87081; 93931; 93971; 96365; 96367; 99285; A9270; G0378; J0696; J2543; J3370